=== PATIENT | female | born 1970 | race Caucasian/White ===

== ENCOUNTER 2017-01-01 12:19 | Emergency (ER) | payer BC ==
[~2017-01-01] VITALS: Ht 165.1 cm; Wt 100.0 kg
[2017-01-01] MEDS ORDERED: JENC0.35 PO (12:32)
[2017-01-01] MEDS ORDERED: GI COCKTAIL 50ML BTL(HYOSCYAMINE/MAALOX/LIDOCAINE VISCOUS)(1:3:1) PO ONE (13:30)
[2017-01-01 13:40] LABS: BASO % 0.4 % (0.0-1.0); EOS % 0.2 % (0.0-3.0); IMMATURE GRANULOCYTE % 0.5 % (0-0); LYMPH # 1.7 10^3/uL (1.5-4.5); LYMPH % 17.7 % (24.0-44.0); MEAN CORPUSCULAR HEMOGLOBIN 25.8 pg (27.0-33.0); MEAN CORPUSCULAR HGB CONC 31.6 g/dl (32.0-36.5); MEAN CORPUSCULAR VOLUME 81.8 fl (80.0-96.0); MONO # 0.6 10^3/uL (0.0-0.8); NEUTROPHILS % 75.2 % (36.0-66.0); PLATELET COUNT, AUTOMATED 438 10^3/uL (150-450); RED CELL DISTRIBUTION WIDTH 13.9 % (11.5-14.5); WHITE BLOOD COUNT 9.3 10^3/uL (4.0-10.0)
[2017-01-01 13:50] LABS: INR 1.03
--- NOTE | 2017-01-01 13:51 | REP ---
Clinical: Chest pain . Comparison: 03/07/2015 . Technique: PA and lateral. Findings: The mediastinum and cardiac silhouette are normal. The lung johnson are clear and without acute consolidation, effusion, or pneumothorax. The skeletal structures are intact and normal. Impression: 1. No acute cardiopulmonary process. Signed by Vaughn Burris MD 01/01/2017 01:42 P
[2017-01-01 13:54] LABS: ALBUMIN 3.9 GM/DL (3.2-5.2); ALBUMIN/GLOBULIN RATIO 1.08 (1.00-1.93); ALKALINE PHOSPHATASE 69 U/L (45-117); ALT/SGPT 18 U/L (12-78); ANION GAP 9 MEQ/L (8-16); AST/SGOT 13 U/L (7-37); BILIRUBIN,DIRECT 0.1 MG/DL (0.0-0.2); BILIRUBIN,TOTAL 0.3 MG/DL (0.2-1.0); BLOOD UREA NITROGEN 11 MG/DL (7-18); CALCIUM LEVEL 9.4 MG/DL (8.5-10.1); CARBON DIOXIDE LEVEL 22 MEQ/L (21-32); CHLORIDE LEVEL 106 MEQ/L (98-107); CREATININE FOR GFR 0.85 MG/DL (0.55-1.02); GLOMERULAR FILTRATION RATE > 60.0 (>58); GLUCOSE, FASTING 103 MG/DL (70-105); POTASSIUM SERUM 3.6 MEQ/L (3.5-5.1); SODIUM LEVEL 137 MEQ/L (136-145); TOTAL PROTEIN 7.5 GM/DL (6.4-8.2)
[2017-01-01] MEDS ORDERED: SUCRALFATE SUSP 1GM/10ML UD PO ONE (14:30)
--- NOTE | 2017-01-01 14:55 | REP ---
Clinical: Chest pain. Technique: Axial noncontrast images from the thoracic inlet to the upper abdomen with coronal and sagittal re-formations. Findings: The lung johnson are well-aerated, symmetric and essentially clear. Minimal scarring at the lingula appears chronic. No acute consolidation, significant nodule or mass lesion. No pleural effusion/reaction or pneumothorax. Tracheobronchial tree is patent. No adenopathy. Mediastinum demonstrates normal thoracic aorta, pulmonary vasculature and heart/pericardium. Surrounding musculoskeletal structures are intact. Limited upper abdomen demonstrates normal bilateral adrenal glands. Impression: Normal noncontrast chest CT. Signed by Vaughn Burris MD 01/01/2017 02:47 P
[2017-01-01] MEDS ORDERED: ISOVUE-370 76% 100ML VIAL (Q9967) As Ordered ONE (16:20)
--- NOTE | 2017-01-01 16:44 | REP ---
Clinical: Acute chest pain. Technique: Axial contrast enhanced images from the thoracic inlet to the upper abdomen using 100 ml Isovue 370 intravenous contrast material with coronal and sagittal re-formations. Findings: Satisfactory enhancement of the pulmonary vasculature is achieved and no filling defects are identified to suggest pulmonary embolus. Thoracic aorta is normal caliber without aneurysm or dissection. Heart and pericardium are normal. Bilateral lung johnson are well aerated and clear without acute pulmonary parenchymal consolidation or atelectasis. No nodule or mass lesion. No pleural effusion/reaction. No pneumothorax. No adenopathy. Impression: No evidence for pulmonary embolus. No acute pleuroparenchymal or mediastinal process. Signed by Vaughn Burris MD 01/01/2017 04:36 P
[2017-01-01] MEDS ORDERED: SUCR1SS PO (17:11)
[2017-01-01] MEDS ORDERED: ASPI81TA85 PO (17:12)
[2017-01-01] MEDS ORDERED: PEPC1TAB4 PO (17:12)
--- NOTE | 2017-01-01 18:12 | ECGEPIP ---
Stationary ECG Study [facility] - ED Test Date: 2017-01-01 Pat Name: ANAI LEONARD Department: Room: - Gender: F [employer]: valerie : 1970 Requested By: Saumya Delgadillo Order Number: [id number] Reading MD: Saumya Delgadillo Measurements Intervals [place] Rate: 103 P: 23 WI: 176 QRS: -2 QRSD: 95 T: -8 QT: 361 QTc: 474 Interpretive Statements SINUS TACHYCARDIA MINIMAL ST DEPRESSION ABNORMAL RHYTHM ECG INCREASED RATE 03/07/15 Electronically Signed On 01-01-2017 18:12:06 EST by Saumya Delgadillo
[2017-01-01 20:35] VITALS: BP 149/70
--- NOTE | 2017-01-02 07:52 | ECGEPIP ---
Stationary ECG Study [facility] - ED Test Date: 2017-01-01 Pat Name: ANAI LEONARD Department: Room: - Gender: F [employer]: valerie : 1970 Requested By: Saumya Delgadillo Order Number: [id number] Reading MD: Saumya Delgadillo Measurements Intervals [place] Rate: 102 P: 18 KS: 169 QRS: -6 QRSD: 95 T: 11 QT: 335 QTc: 436 Interpretive Statements SINUS TACHYCARDIA LOW QRS VOLTAGE IN PRECORDIAL LEADS MINIMAL VOLTAGE CRITERIA FOR LVH, CONSIDER NORMAL VARIANT NONSPECIFIC T-WAVE ABNORMALITY ABNORMAL RHYTHM ECG SIMILAR 01/01/17 12:43 Electronically Signed On 01-02-2017 7:52:22 EST by Saumya Delgadillo
== END 2017-01-01 20:56 | disposition home or self-care (01) ==
LOC: M ED 12:19
DX: R07.9 Chest pain, unspecified (principal); R00.0 Tachycardia, unspecified; R94.31 Abnormal electrocardiogram [ECG] [EKG]; Z82.49 Family history of ischemic heart disease and other diseases of the circulatory system; Z79.899 Other long term (current) drug therapy
CPT/HCPCS: 71020; 71250; 71275; 80048; 80076; 82550; 82553; 83880; 84443; 85025; 85610; 93005; 93041; 94760; 99285; Q9967

== ENCOUNTER 2017-01-09 21:50 | Emergency (ER) | payer BC ==
[~2017-01-09] VITALS: Ht 165.1 cm; Wt 96.4 kg
[~2017-01-09 21:50] MED LIST: ASPI81TA85 PO; JENC0.35 PO; PEPC1TAB4 PO; SUCR1SS PO
[2017-01-09] MEDS ORDERED: METOPROLOL SUCC *XL* 25MG TAB (TopROL *XL*) PO ONE (22:45)
[2017-01-09 22:46] VITALS: BP 175/85
[2017-01-09 22:53] LABS: MEAN CORPUSCULAR HEMOGLOBIN 26.1 pg (27.0-33.0); MEAN CORPUSCULAR HGB CONC 31.7 g/dl (32.0-36.5); MEAN CORPUSCULAR VOLUME 82.4 fl (80.0-96.0); PLATELET COUNT, AUTOMATED 421 10^3/uL (150-450); RED CELL DISTRIBUTION WIDTH 14.3 % (11.5-14.5)
[2017-01-09 23:10] LABS: ANION GAP 10 MEQ/L (8-16); BLOOD UREA NITROGEN 10 MG/DL (7-18); CALCIUM LEVEL 10.6 MG/DL (8.5-10.1); CARBON DIOXIDE LEVEL 24 MEQ/L (21-32); CHLORIDE LEVEL 104 MEQ/L (98-107); CREATININE FOR GFR 0.89 MG/DL (0.55-1.02); GLOMERULAR FILTRATION RATE > 60.0 (>58); GLUCOSE, FASTING 93 MG/DL (70-105); POTASSIUM SERUM 3.4 MEQ/L (3.5-5.1); SODIUM LEVEL 138 MEQ/L (136-145)
[2017-01-09] MEDS ORDERED: METO1TAB32 PO (23:18)
[2017-01-09 23:28] VITALS: BP 156/79
== END 2017-01-09 23:33 | disposition home or self-care (01) ==
LOC: M ED 21:50
DX: I10 Essential (primary) hypertension (principal); Z79.82 Long term (current) use of aspirin; Z79.899 Other long term (current) drug therapy

== ENCOUNTER → 2017-01-13 | Outpatient (CLI) | payer BC ==
[~2017-01-13] MED LIST changes: +METO1TAB32 PO
--- NOTE | 2017-01-14 07:56 | REP ---
PELVIC ULTRASOUND: CLINICAL: Pelvic pain with abnormal uterine bleeding. TECHNIQUE: Transabdominal pelvic ultrasound followed by transvaginal examination for better evaluation of the endometrium and adnexa with color Doppler evaluation of the ovaries. COMPARISON: 12/20/2015. FINDINGS: The bladder is under distended by measures approximately 6.7 x 4.4 x 6.8 cm. Heterogeneous retroverted, retroflexed uterus measures 9.2 x 4.5 x 5.2 cm. Endometrial complex measures 5.4 mm thickness and a 7 mm endometrial polyp is identified. The right ovary measures 3.6 x 3.5 x 3.0 cm and includes a 2.9 cm cyst with daughter cysts and demonstrates normal vascularity without torsion. The left ovary is not visualized likely due to overlying bowel gas. No pelvic free fluid or adnexal mass lesion noted. IMPRESSION: 1. Heterogeneous uterus with 7 mm endometrial polyp suggested. 2. Right ovary includes 2.9 cm cyst with daughter cyst likely physiologic and may be re-evaluated in 4-6 weeks to evaluate for resolution. 3. Left ovary not visualized. Signed by Vaughn Burris MD 01/17/2017 11:52 P
== END ==
LOC: M RAD 16:47
PROVIDERS: ATTEND Nurse Practitioner Family
DX: N83.291 Other ovarian cyst, right side (principal)

== ENCOUNTER → 2018-06-23 | Outpatient (REF) | payer BC ==
[~2018-06-23] MED LIST changes: +BENA25TA10 PO; +MELA5TAB20 PO; +OXYC1TAB23 PO; -PEPC1TAB4 PO; +PEPC1TAB5 PO
[2018-06-23 11:40] LABS: BASO # 0.1 10^3/uL (0.0-0.2); BASO % 0.7 % (0.0-1.0); EOS # 0.1 10^3/uL (0.0-0.50); EOS % 0.8 % (0.0-3.0); HEMATOCRIT 39.2 % (36.0-47.0); HEMOGLOBIN 12.5 g/dl (12.0-15.5); LYMPH # 1.9 10^3/uL (1.5-4.5); LYMPH % 19.1 % (24.0-44.0); MEAN CORPUSCULAR HEMOGLOBIN 29.1 pg (27.0-33.0); MEAN CORPUSCULAR HGB CONC 31.9 g/dl (32.0-36.5); MEAN CORPUSCULAR VOLUME 91.2 fl (80.0-96.0); MONO # 0.9 10^3/uL (0.0-0.8); MONO % 9.7 % (0.0-5.0); NEUTROPHILS # 6.7 10^3/uL (1.8-7.7); NEUTROPHILS % 69.2 % (36.0-66.0); PLATELET COUNT, AUTOMATED 311 10^3/uL (150-450); WHITE BLOOD COUNT 9.7 10^3/uL (4.0-10.0)
[2018-06-23 12:17] LABS: ALBUMIN 3.6 GM/DL (3.2-5.2); ALT/SGPT 20 U/L (12-78); BILIRUBIN,TOTAL 0.4 MG/DL (0.2-1.0); BLOOD UREA NITROGEN 16 MG/DL (7-18); CALCIUM LEVEL 9.7 MG/DL (8.5-10.1); CARBON DIOXIDE LEVEL 27 MEQ/L (21-32); CHLORIDE LEVEL 105 MEQ/L (98-107); CHOLESTEROL LEVEL 219 MG/DL (<200); CHOLESTEROL RISK RATIO 4.659 (<5); CREATININE FOR GFR 0.92 MG/DL (0.55-1.30); FREE T4 1.02 NG/DL (0.76-1.46); GLOMERULAR FILTRATION RATE > 60.0 (>58); GLUCOSE, FASTING 97 MG/DL (70-100); HDL CHOLESTEROL 47 MG/DL (>40); LDL CHOLESTEROL 140 MG/DL (<100); NON-HDL-C 172 MG/DL; POTASSIUM SERUM 4.3 MEQ/L (3.5-5.1); SODIUM LEVEL 138 MEQ/L (136-145); TOTAL PROTEIN 7.3 GM/DL (6.4-8.2); TRIGLYCERIDES LEVEL 162 MG/DL (<150)
[2018-06-23 12:20] LABS: TOTAL 25(OH) VITAMIN D 16.3 NG/ML (30.0-100.0)
== END ==
LOC: M SFHCLERA 09:20
PROVIDERS: ATTEND Nurse Practitioner Family
DX: R53.82 Chronic fatigue, unspecified (principal); Z13.220 Encounter for screening for lipoid disorders

== ENCOUNTER → 2018-11-08 | Outpatient (CLI) | payer BC ==
--- NOTE | 2018-11-08 17:26 | REP ---
HISTORY: Heel pain. No trauma. COMPARISON: No priors. FINDINGS: The joint spaces are symmetric and relatively well maintained. There is no evidence of acute fracture or destructive osseous lesion. There is a tiny minimal possible plantar calcaneal spur. IMPRESSION: Negative. There is a tiny minimal possible plantar calcaneal spur. Electronically Signed by Chay Herring DO 11/09/2018 11:29 A
== END ==
LOC: M LRY 14:25
PROVIDERS: ATTEND Nurse Practitioner Family
DX: M79.671 Pain in right foot (principal)

== ENCOUNTER → 2018-12-26 | Outpatient (REF) | payer BC | LOC: M SFHCLERA 17:06 | PROVIDERS: ATTEND Nurse Practitioner Family | DX: E55.9 Vitamin D deficiency, unspecified (principal) ==

== ENCOUNTER → 2020-04-01 | Outpatient (REF) | payer BC ==
[~2020-04-01] MED LIST changes: -ASPI81TA85 PO; +ASPI81TA86 PO
[2020-04-01 17:51] LABS: BASO # 0.1 10^3/uL (0.0-0.2); BASO % 0.9 % (0.0-1.0); EOS # 0.1 10^3/uL (0.0-0.5); EOS % 1.1 % (0.0-3.0); HEMATOCRIT 40.2 % (36.0-47.0); LYMPH # 2.8 10^3/uL (1.5-5.0); LYMPH % 32.3 % (24.0-44.0); MEAN CORPUSCULAR HEMOGLOBIN 28.9 pg (27.0-33.0); MEAN CORPUSCULAR HGB CONC 32.3 g/dl (32.0-36.5); MEAN CORPUSCULAR VOLUME 89.3 fl (80.0-96.0); MONO # 0.7 10^3/uL (0.0-0.8); MONO % 7.9 % (2.0-8.0); NEUTROPHILS # 4.9 10^3/uL (1.5-8.5); NEUTROPHILS % 57.3 % (36.0-66.0); PLATELET COUNT, AUTOMATED 350 10^3/uL (150-450); WHITE BLOOD COUNT 8.5 10^3/uL (4.0-10.0)
[2020-04-01 18:13] LABS: ALBUMIN 4.1 GM/DL (3.2-5.2); ALT/SGPT 58 U/L (12-78); BILIRUBIN,TOTAL 0.3 MG/DL (0.2-1.0); BLOOD UREA NITROGEN 14 MG/DL (7-18); CALCIUM LEVEL 10.4 MG/DL (8.5-10.1); CARBON DIOXIDE LEVEL 29 MEQ/L (21-32); CHLORIDE LEVEL 104 MEQ/L (98-107); CREATININE FOR GFR 0.81 MG/DL (0.55-1.30); GLOMERULAR FILTRATION RATE > 60.0 (>58); GLUCOSE, FASTING 91 MG/DL (70-100); POTASSIUM SERUM 4.2 MEQ/L (3.5-5.1); RHEUMATOID FACTOR QUANT < 10.0 IU/ML (<15.0); SODIUM LEVEL 138 MEQ/L (136-145); TOTAL PROTEIN 7.3 GM/DL (6.4-8.2)
[2020-04-01 19:07] LABS: ERYTHROCYTE SEDIMENTATION RATE 11 mm/hr (0-20)
[2020-04-04 00:08] LABS: ANA (HEP2) Negative (.); CYCLIC CITRULLINATED PEPTIDE 5 units (0-19)
== END ==
LOC: M SFHCLERA 14:55
PROVIDERS: ATTEND Nurse Practitioner Family
DX: L40.9 Psoriasis, unspecified (principal); M25.561 Pain in right knee

== ENCOUNTER → 2020-04-02 | Outpatient (CLI) | payer BC ==
--- NOTE | 2020-04-02 10:37 | REPMRS ---
Patient History The patient states she has not had a clinical breast exam in over a year. No known family history of cancer. Took progesterone for 2 months. Digital Woman Screen Mammo: April 02, 2020 - Exam #: [id number] Bilateral CC and MLO view(s) were taken. Technologist: Hortencia Clark, Technologist Prior study comparison: December 20, 2015, bilateral digital mammo screening bilat, performed at [facility]. FINDINGS: There are scattered fibroglandular densities. The Volpara volumetric breast density category is:B. There has been no change in the appearance of the mammogram from the prior studies. There is a mild amount of scattered fibroglandular density which is fairly symmetric. There is no interval development of dominant mass, architectural distortion, or grouped microcalcification suggestive of malignancy. 3-D tomosynthesis shows no additional findings. Assessment: BI-RADS/ACR category 1 mammogram. Negative Mammogram. Recommendation Routine screening mammogram of both breasts in 1 year (for women over age 40). [facility] Lifetime Breast Cancer Risk is estimated at 8.4 %. This mammogram was interpreted with the aid of an FDA-approved computer-aided dectection system. Electronically Signed By: Kin Pantoja MD 04/02/20 1037
== END ==
LOC: M WHC 07:42
PROVIDERS: ATTEND Nurse Practitioner Family
DX: Z12.31 Encounter for screening mammogram for malignant neoplasm of breast (principal)

== ENCOUNTER → 2020-05-23 | Outpatient (CLI) | payer BC ==
--- NOTE | 2020-05-24 06:40 | REPPI ---
INDICATION: M75.80 ROTATOR CUFF DENTINITIS COMPARISON: None. TECHNIQUE: Internal rotation, external rotation, and Y view. FINDINGS: Cortical irregularity at the distal acromion. Subacromial space is normal. No periarticular calcifications or loose bodies are identified. The glenohumeral joint appears intact and normal. IMPRESSION: Mild degenerative changes at the acromioclavicular joint. <Electronically signed by Vaughn Burris > 05/24/20 0637
== END ==
LOC: M PLAIMG 10:49
PROVIDERS: ATTEND Internal Medicine
DX: M75.81 Other shoulder lesions, right shoulder (principal)

== ENCOUNTER → 2020-05-23 | Outpatient (REF) | payer BC ==
[2020-05-23 15:02] LABS: CALCIUM LEVEL 10.4 MG/DL (8.5-10.1); FREE T4 1.04 NG/DL (0.76-1.46); MAGNESIUM LEVEL 2.2 MG/DL (1.8-2.4); PHOSPHORUS LEVEL 2.9 MG/DL (2.5-4.9); THYROID STIMULATING HORMONE 2.72 uIU/ML (0.358-3.740)
[2020-05-23 16:31] LABS: PTH INTACT 65.2 PG/ML (18.5-88.0); TOTAL 25(OH) VITAMIN D 49.4 NG/ML (30.0-100.0)
== END ==
LOC: M SFHCRHEU 10:11
PROVIDERS: ATTEND Internal Medicine
DX: E83.52 Hypercalcemia (principal); M79.10 Myalgia, unspecified site; R53.82 Chronic fatigue, unspecified

== ENCOUNTER 2020-12-30 04:52 | Emergency (ER) | payer BC ==
[~2020-12-30] VITALS: Ht 167.6 cm; Wt 97.6 kg
--- OUTSIDE RECORDS SUMMARY | 2020-12-30 04:59 | CCD ---
Author Author [facility] [employer] [facility] [facility] Organization [facility] Address Unknown Phone Unavailable Care Team Providers Care Education Reporter Name Role Phone Osvaldo Prietonzie Unavailable PROBLEMS Type Condition ICD9-CM Code [id number] Code Onset Dates Condition S tatus W/U Status Risk SNOMED Code Notes Problem Gastroesophageal reflux disease, esophagitis pre sence not specified K21.9 Active confirmed 595691354 Problem Essential hypertension I10 Active confirmed 07454888 Problem GERD without esophagitis K21.9 Active confirmed 584640327 Problem Osteoarthritis of knee, unsp ecified laterality, unspecified osteoarthritis type M17.10 Active confirmed 584408301 Problem Psoriasis L40.9 Active confirmed 4229352 Problem Acute right-sided low back pain with right-sided sciatica M54.41 Active confirmed 583119828 Problem Insomnia, unspecified type G47.00 Active confirmed 405313521 Problem Chronic fatigue R53.82 Active confirmed 8422 9001 Problem Vitamin D deficiency E55.9 Active confirmed 11354181 Problem Serum calcium elevated E83.52 Active confirmed 70015633 ALLERGIES No Known Allergies ENCOUNTERS from 1970 to 2020-12-20 Encounter Location Date Provider Diagnosis [address] [phone] [place] [address] 11 Dec, 2020 Clarisa Prieto IMMUNIZATIONS Vaccine Route Administration Date Status Influenza Pharmacy Given Unknown Dec 26, 2018 Refused TDAP 0.5mL (Boostrix) IM Intramuscular Dec 23, 2017 Administe red SOCIAL HISTORY Tobacco Use: Social History Observation Description Date Details (start date - stop date) Never Smoker Sex Assigned At : Social History Observation Description Sex Assigned At Unknown Education: Question Answer Notes Level of Education: College Audit Question Answer Notes Total Score: 0 Interpretation: Alcohol Education Language: Question Answer Notes Languages spoken: Bangladeshi Hindu: Question Answer Notes Hindu 33 None Sexual Hx: Question Answer Notes Had sex in the last 12 months (vaginal, oral, or anal)? Yes Have you ever had an STD? No Prevention Strategies discussed: Other with Men only Use protection? No Drug and Alcohol Question Answer Notes Total Score: 0 Interpretation: No problems reported Alcohol Screening: Question Answer Notes Did you have a drink containing alcohol in the past year? Ye s Points 1 Interpretation Negative How often did you have six or more drinks on one occas ion in the past year? Never (0 points) How many drinks did you have on a typica l day when you were drinking in the past year? 1 or 2 (0 points) How often did you have a drink containing alcohol in t he past year? Monthly or less (1 point) BMI Care Goal Follow-Up Question Answer Notes Above Normal BMI Follow-Up Dietary management educatio n, guidance, and counseling, Dietary needs education, Exercise promotion: strength training Tobacco Use: Question Answer Notes Are you a: never smoker never smoker REASON FOR REFERRAL No Information VITAL SIGNS No information MEDICATIONS Medication SIG (Take, Route, Frequency, Duration) Notes Start Da te End Date Status Vitamin C 500 MG 1 tablet Orally Once a day for 30 day(s) Active Metoprolol Succinate ER 50 MG 1 tablet Orally Once a day for 90 days Active Magnesium 400 MG 1 capsule with a meal Orally at night OTC Active Gabapentin 300 MG 1 capsule Orally TID for 14 days Dec, Active Nabumetone(Relafen) 500 mg 500 mg one tablet orally every 12 hours for 90 days Please contact the patient, when the prescription is ready, thank you. Active Zanaflex 2 MG 1 cap Orally Qhs for 30 days Dec, Active Multivitamin Women - 1 tab Orally Once a day Active Voltaren 1 % apply 4 g of 1% gel to affec jessica area Transdermal four times daily as needed for 30 days Active Apple Cider Vinegar _ 1 cap Orally bid OTC Active Tylenol Extra Strength 500 MG 2 tablet as needed Orally every night Active Vitamin D 125 MCG (5000 UT) 1 capsule Orally Once a day Active hydrOXYzine HCl 50 MG 1 tablet at bedtime Orally at bedtime for 90 day(s) Jan, Active [place] 3 1000 MG 1 capsule Orally every other day Nov, 2 021 Active PROCEDURES No Information RESULTS No Results REASON FOR VISIT sciatica pain MEDICAL (GENERAL) HISTORY Type Description Date Medical History Hypertension Medical History GERD Medical History Psoriasis Medical History Left/right knee pain Medical History Hiatal Hernia Medical History Dysfunctional Gall bladder Surgical History Carpal tunnel release left hand 2003 Surgical History Tubal ligation 1998 Surgical History Partial hysterectomy 05/10/17 Hospitalization History Surgery related Hospitalization History Child x 3 1991, 1996, 1998 Goals Section No Information Health Concerns No Information MEDICAL EQUIPMENT No Information MENTAL STATUS No Information FUNCTIONAL STATUS No Information ASSESSMENTS No Information PLAN OF TREATMENT Medication Medication Name Sig Start Date Stop Date Zanaflex 2 MG 1 cap Orally Qhs for 30 days Dec, Gabapentin 300 MG 1 capsule Orally TID for 14 days Dec, Next Appt Details Provider Name:Lennie Sprague, 2021-05-26 10:45:00 AM, [address] [place] [address], , [place], [place], [facility], Insurance Providers Payer Name Payer Address Payer Phone Insured Name Patient Relati onship to Insured Coverage Start Date Coverage End Date [facility] [phone] [facility] [address] [facility] [id number] Cliff Carpenter
--- OUTSIDE RECORDS SUMMARY | 2020-12-30 04:59 | CCD ---
Author Author [facility] Organization [facility] Address Unknown Phone Unavailable Care Team Providers Care Child Development Director Name Role Phone Lennie Sprague PROBLEMS Type Condition ICD9-CM Code [id number] Code Onset Dates Condition S tatus W/U Status Risk SNOMED Code Notes Problem Psoriasis L40.9 Active confirmed 7893823 Problem Gastroesophageal reflux disease, esophagitis pre sence not specified K21.9 Active confirmed 194547544 Problem Essential hypertension I10 Active confirmed 81983020 Problem Serum calcium elevated E83.52 Active confirmed 25308636 Problem Osteoarthritis of knee, unsp ecified laterality, unspecified osteoarthritis type M17.10 Active confirmed 723330448 Problem GERD without esophagitis K21.9 Active confirmed 759050054 Problem Insomnia, unspecified type G47.00 Active confirmed 259448077 Problem Chronic fatigue R53.82 Active confirmed 8422 9001 Problem Vitamin D deficiency E55.9 Active confirmed 34311928 ALLERGIES Allergen (clinical drug ingredient) Drug/Non Drug Allergy do cumented on EMR Reaction Allergy Type Onset Date Status Hayfever Unknown Non Drug Allergy Active ENCOUNTERS from 1970 to 2020-11-23 Encounter Location Date Provider Diagnosis [facility] [phone] [place] [address] 15 Nov, 2020 Lennie Sprague IMMUNIZATIONS Vaccine Route Administration Date Status Influenza [...] Education Language: Question Answer Notes Languages spoken: Indian Confucianism: Question Answer Notes Confucianism 33 None Sexual Hx: Question Answer Notes [...] Notes Start Da te End Date Status Nabumetone(Relafen) 500 mg 500 mg one tablet orally every 12 hours for 30 days Active PROCEDURES No Information RESULTS No Results REASON FOR VISIT Appointment Status MEDICAL (GENERAL) HISTORY Type Description Date Medical [...] Medication Name Sig Start Date Stop Date Nabumetone(Relafen) 500 mg 500 mg one tablet orally every 12 hours for 30 days Next Appt Details Provider Name:Lennie Sprague, 2020-11-25 10:45:00 AM, [address] [place] [address], [place], [place], [facility], Insurance Providers Payer Name Payer Address Payer Phone Insured Name Patient Relati onship to Insured Coverage Start Date Coverage End Date [facility] [phone] [facility] [address] ROSITA Saleh [facility] [address] Cliff Carpenter
--- OUTSIDE RECORDS SUMMARY | 2020-12-30 04:59 | CCD ---
Author Author [facility] Organization [facility] Address Unknown Phone Unavailable Care Team Providers Care Hand Spinner Name Role Phone Lisbeth Sawant Unavailable PROBLEMS Type Condition ICD9-CM Code [id number] Code Onset Dates Condition S tatus W/U Status Risk SNOMED Code Notes Problem Gastroesophageal reflux disease, esophagitis pre sence not specified K21.9 Active confirmed 328270468 Problem Essential hypertension I10 Active confirmed 56106247 Problem GERD without esophagitis K21.9 Active confirmed 515218386 Problem Osteoarthritis of knee, unsp ecified laterality, unspecified osteoarthritis type M17.10 Active confirmed 709999156 Problem Psoriasis L40.9 Active confirmed 6582368 Problem Acute right-sided low back pain with right-sided sciatica M54.41 Active confirmed 980769171 Problem Insomnia, unspecified type G47.00 Active confirmed 705806298 Problem Chronic fatigue R53.82 Active confirmed 8422 9001 Problem Vitamin D deficiency E55.9 Active confirmed 28996954 Problem Serum calcium elevated E83.52 Active confirmed 29818975 ALLERGIES No Known Allergies ENCOUNTERS from 1970 to 2020-12-20 Encounter Location Date Provider Diagnosis [address] [phone] [place] [address] 09 Dec, 2020 Lisbeth Sawnat Acute right-sided low back p ain with right-sided sciatica M54.41 IMMUNIZATIONS Vaccine Route Administration Date Status Influenza [...] Education Language: Question Answer Notes Languages spoken: Cook Islander Gnosticism: Question Answer Notes Gnosticism 33 None Sexual Hx: Question Answer Notes [...] REASON FOR REFERRAL No Information VITAL SIGNS Weight 237.8 lbs Dec, Weight-kg 107.87 kg Dec, Height 65.5 in Dec, BMI 38.97 kg/m2 Dec, Heart Rate 132 /min Dec, Respiratory Rate 22 /min Dec, Temperature 97.5 degrees Fahrenheit Dec, Oximetry 100 Dec, Blood pressure systolic 150 mm Hg Dec, Blood pressure diastolic 100 mm Hg Dec, MEDICATIONS Medication SIG (Take, Route, Frequency, Duration) [...] at bedtime for 90 day(s) Jan, Active [place] 3 1000 MG 1 capsule Orally every other day Nov, 2 021 Active PROCEDURES from 1970 to 2020-12-20 Procedure Date Ordered Result Body Site Medication: Depo-Medrol 80mg IM (Methylprednisolone Acetate) 02-19-08 N/A RESULTS No Results REASON FOR VISIT Door D/ Hip pain MEDICAL (GENERAL) HISTORY Type Description Date [...] No Information FUNCTIONAL STATUS No Information ASSESSMENTS Encounter Date Diagnosis Assessment Notes Treatment Notes Treatm ent Clinical Notes Dec, Acute right-sided low back p ain with right-sided sciatica (ICD-10 - M54.41) Pt's pain had improved by the end of the visit; she was no longer crying and was able to ambulate. Recommended f/u with PCP Dec, Other Total time kellie ng for the patient on the day of the encounter was 20 min PLAN OF TREATMENT Medication Medication Name Sig Start Date Stop Date Zanaflex 2 MG 1 cap Orally Qhs for 30 days Dec, Gabapentin 300 MG 1 capsule Orally TID for 14 days Dec, Treatment Notes Assessment Notes Clinical Notes Acute right-sided low back pain with right-sided sciatica Pt's pain had improved by the end of the visit; she was no longer crying and was able to ambulate. Recommended f/u with PCP Next Appt Details f/u 5-7 days with PCP or other Leray pro vider; when out of quarantine Reason: Provider Name:Lennie Sprague, 2021-05-26 10:45:00 AM, [address] [place] [address], , [place], [place], [facility], Insurance Providers Payer Name Payer Address Payer Phone Insured Name Patient Relati onship to Insured Coverage Start Date Coverage End Date [facility] [phone] [facility] [address] [facility] [id number] Cliff Carpenter
--- OUTSIDE RECORDS SUMMARY | 2020-12-30 04:59 | CCD ---
Author Author [facility] Organization [facility] Address Unknown Phone Unavailable Care Team Providers Care Rn Float Name Role Phone Holli Long Unavailable PROBLEMS Type Condition ICD9-CM Code [id number] Code Onset Dates Condition S tatus W/U Status Risk SNOMED Code Notes Problem Gastroesophageal reflux disease, esophagitis pre sence not specified K21.9 Active confirmed 356553512 Problem Essential hypertension I10 Active confirmed 00538761 Problem GERD without esophagitis K21.9 Active confirmed 534864907 Problem Osteoarthritis of knee, unsp ecified laterality, unspecified osteoarthritis type M17.10 Active confirmed 567494615 Problem Psoriasis L40.9 Active confirmed 4729452 Problem Acute right-sided low back pain with right-sided sciatica M54.41 Active confirmed 357736963 Problem Insomnia, unspecified type G47.00 Active confirmed 328054144 Problem Chronic fatigue R53.82 Active confirmed 8422 9001 Problem Vitamin D deficiency E55.9 Active confirmed 00348642 Problem Serum calcium elevated E83.52 Active confirmed 09291927 ALLERGIES No Known Allergies ENCOUNTERS from 1970 to 2020-12-27 Encounter Location Date Provider Diagnosis [address] [phone] [place] [address] Dec, Hollielmer Long IMMUNIZATIONS Vaccine Route Administration Date Status Influenza [...] Education Language: Question Answer Notes Languages spoken: Urdu Mandaen: Question Answer Notes Mandaen 33 None Sexual Hx: Question Answer Notes [...] at bedtime for 90 day(s) Jan, Active [place] 3 1000 MG 1 capsule Orally every other day 18 Oct, 2 021 Active PROCEDURES No Information RESULTS No Results REASON FOR VISIT Sciatica MEDICAL (GENERAL) HISTORY Type Description Date Medical History Hypertension Medical History GERD Medical History Psoriasis Medical History Left/right knee pain Medical History Hiatal Hernia Medical History Dysfunctional Gall bladder Surgical History Carpal tunnel release left hand 2004 Surgical History Tubal ligation 1998 Surgical History [...] Details Provider Name:Lennie Sprague, 2021-05-26 10:45:00 AM, [address] [place] [address], , [place], [place], [facility], Insurance Providers Payer Name Payer Address Payer Phone Insured Name Patient Relati onship to Insured Coverage Start Date Coverage End Date [facility] [phone] [facility] [address] [facility] [id number] Cliff Carpenter
--- OUTSIDE RECORDS SUMMARY | 2020-12-30 04:59 | CCD ---
Author Author [facility] Organization [facility] Address Unknown Phone Unavailable Care Team Providers Care Painter Sign Maintenance Name Role Phone Lennie Sprague PROBLEMS Type Condition ICD9-CM Code [id number] Code Onset Dates Condition S tatus W/U Status Risk SNOMED Code Notes Problem Psoriasis L40.9 Active confirmed 8202989 Problem Gastroesophageal reflux disease, esophagitis pre sence not specified K21.9 Active confirmed 032396697 Problem Essential hypertension I10 Active confirmed 57153545 Problem Serum calcium elevated E83.52 Active confirmed 05044126 Problem Osteoarthritis of knee, unsp ecified laterality, unspecified osteoarthritis type M17.10 Active confirmed 361649280 Problem GERD without esophagitis K21.9 Active confirmed 099159893 Problem Insomnia, unspecified type G47.00 Active confirmed 561749025 Problem Chronic fatigue R53.82 Active confirmed 8422 9001 Problem Vitamin D deficiency E55.9 Active confirmed 90863698 ALLERGIES Allergen (clinical drug ingredient) Drug/Non Drug Allergy do cumented on EMR Reaction Allergy Type Onset Date Status Hayfever Unknown Non Drug Allergy Active ENCOUNTERS from 1970 to 2020-12-05 Encounter Location Date Provider Diagnosis [facility] Rheumatology [address] [place] [address] [place] [id number] 18 Nov, 2020 Lennie Sprague Rotator cuff tendinitis, uns pecified laterality M75.80 ; Osteoarthritis of knee, unspecified laterality, unspecified osteoarthritis type M17.10 ; Trochanteric bursitis, unspecified laterality M70.60 ; Plantar fasciitis M72.2 ; Chronic fatigue R53.82 ; Psoriasis L40.9 ; Myalgia M79.10 and residential (current) use of non-steroidal anti-inflammatories (NSAID) Z79.1 IMMUNIZATIONS Vaccine Route Administration Date Status Influenza [...] Education Language: Question Answer Notes Languages spoken: Divehi Congregation: Question Answer Notes Congregation 33 None Sexual Hx: Question Answer Notes [...] No Information VITAL SIGNS Weight 237.8 lbs Nov, Height 65.5 in Nov, BMI 38.97 kg/m2 Nov, Heart Rate 89 /min Nov, Respiratory Rate 18 /min Nov, Temperature 98.7 degrees Fahrenheit Nov, Oximetry 98 Nov, Blood pressure systolic 130 mm Hg Nov, Blood pressure diastolic 84 mm Hg Nov, MEDICATIONS Medication SIG (Take, Route, Frequency, Duration) Notes Start Da te End Date Status Voltaren 1 % apply 4 g of 1% gel to affec jessica area Transdermal four times daily as needed for 30 days Active Magnesium 400 MG 1 capsule with a meal Orally at night OTC Active Apple Cider Vinegar _ 1 cap Orally bid OTC Active Multivitamin Women - 1 tab Orally Once a day Active Metoprolol Succinate ER 50 MG 1 tablet Orally Once a day for 90 days Active Tylenol Extra Strength 500 MG 2 tablet as needed Orally every night Active Nabumetone(Relafen) 500 mg 500 mg one tablet orally every 12 hours for 90 days Please contact the patient, when the prescription is ready, thank you. Active Vitamin C 500 MG 1 tablet Orally Once a day for 30 day(s) Active Vitamin D 125 MCG (5000 UT) 1 capsule Orally Once a day Active [place] 3 1000 MG 1 capsule Orally every other day Nov, Active hydrOXYzine HCl 50 MG 1 tablet at bedtime Orally at bedtime for 90 day(s) Jan, Active PROCEDURES No Information RESULTS No Results REASON FOR VISIT c/o significant pain in left heel. Right shoulder rarely bothers pt MEDICAL (GENERAL) HISTORY Type Description Date Medical [...] Notes Treatment Notes Treatm ent Clinical Notes Nov, Rotator cuff tendinitis, unspecified lat erality (ICD-10 - M75.80) Right shoulder pain, swelling, and weakness consistent w/ rotator cuff tendinitis, with significant improvement in the symptomatology, after the cortictosteroid injection on 09/12/2020. Previously reviewed the x-rays of the shoulder consistent with "mild degenerative changes at the acromioclavicular joint." The patient has improved with the home exercise program. Will defer to PT for strengthening, conditioning, and increased range of motion of joints in a supervised environment. Continue Nabumetone 500 mg twice daily for improvement in the symptomatology. Nov, Osteoarthritis of knee, unsp ecified laterality, unspecified osteoarthritis type (ICD-10 - M17.10) Knee pain is consistent with osteoarthritis, slowly improving. Strongly encouraged a consistent exercise program and weight management. Will defer physical therapy for strengthening, conditioning, and increased range of motion of joints in a supervised environment. Continue voltaren and Tylenol 1000 mg daily as needed for analgesia. Nov, Trochanteric bursitis, unspecified laterality (I CD-10 - M70.60) Clinical presentation consistent w/ trochanteric bursitis of the bilateral hips with significant improvement in symptomatology. Will defer physical therapy, at this time. Encouraged the performance trochanteric bursitis exercises on weekly basis. Nov, Plantar fasciitis (ICD-10 - M72.2) Information and exercises provided for the plantar fasciitis; expect improvement in the foot symptomatology with the exercises. Will defer the podiatry consultation, based on the patient preference and the barriers that she faces w/ cost. Nov, Chronic fatigue (ICD-10 - R53.82) Recommended the optimization of lifestyle, will consider a home sleep study for continued fatigue symptomatology. Nov, Psoriasis (ICD-10 - L40.9) History of psoriasis; no evidence of psoriatic arthritis, based on the overall clinical presentation. Nov, Myalgia (ICD-10 - M79.10) The underlying etiology of the myalgias are unknown, at this time. TSH, vitamin B12, magnesium, phosphorous, CK were within normal limits and iron on the lower end of normal range. The patient was also encouraged to increase foods with iron (information provided). 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 PLAN OF TREATMENT Medication Medication Name Sig Start Date Stop Date Nabumetone(Relafen) 500 mg 500 mg one tablet orally every 12 hours for 90 days Voltaren 1 % apply 4 g of 1% gel to affec jessica area Transdermal four times daily as needed for 30 days Treatment Notes Assessment Notes Clinical Notes Rotator cuff tendinitis, unspecified laterality Right shoulder pain, swelling, and weakness consistent w/ rotator cuff tendinitis, with significant improvement in the symptomatology, after the cortictosteroid injection on 09/12/2020. Previously reviewed the x-rays of the shoulder consistent with "mild degenerative changes at the acromioclavicular joint." The patient has improved with the home exercise program. Will defer to PT for strengthening, conditioning, and increased range of motion of joints in a supervised environment. Continue Nabumetone 500 mg twice daily for improvement in the symptomatology. Osteoarthritis of knee, unspecified laterality, unspec ified osteoarthritis type Knee pain is consistent with osteoarthri tis, slowly improving. Strongly encouraged a consistent exercise program and weight management. Will defer physical therapy for strengthening, conditioning, and increased range of motion of joints in a supervised environment. Continue voltaren and Tylenol 1000 mg daily as needed for analgesia. Trochanteric bursitis, unspecified laterality Clinical presentation consistent w/ trochanteric bursitis of the bilateral hips with significant improvement in symptomatology. Will defer physical therapy, at this time. Encouraged the performance trochanteric bursitis exercises on weekly basis. Plantar fasciitis Information and exer cises provided for the plantar fasciitis; expect improvement in the foot symptomatology with the exercises. Will defer the podiatry consultation, based on the patient preference and the barriers that she faces w/ cost. Chronic fatigue Recommended the opti mization of lifestyle, will consider a home sleep study for continued fatigue symptomatology. Psoriasis History of psoriasis ; no evidence of psoriatic arthritis, based on the overall clinical presentation. Myalgia The underlying etiol ogy of the myalgias are unknown, at this time. TSH, vitamin B12, magnesium, phosphorous, CK were within normal limits and iron on the lower end of normal range. The patient was also encouraged to increase foods with iron (information provided). 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 Next Appt Details Provider Name:Lennie Sprague, 2021-05-26 10:45:00 AM, [address] [place] [address], , [place], [address], Insurance Providers Payer Name Payer Address Payer Phone Insured Name Patient Relati onship to Insured Coverage Start Date Coverage End Date [facility] [phone] [place] [address] [address] [facility] [id number] Cliff Carpenter
--- OUTSIDE RECORDS SUMMARY | 2020-12-30 04:59 | CCD ---
Author Author [facility] Organization [facility] [employer] [facility] Address Unknown Phone Unavailable Care Team Providers Care Rice Farmworker Name Role Phone Clarisa Prieto Unavailable PROBLEMS ALLERGIES No Known Allergies ENCOUNTERS from 1970 to 2020-12-24 IMMUNIZATIONS SOCIAL HISTORY REASON FOR REFERRAL No Information VITAL SIGNS MEDICATIONS PROCEDURES No Information RESULTS No Results REASON FOR VISIT MEDICAL (GENERAL) HISTORY Goals Section Health Concerns MEDICAL EQUIPMENT No Information MENTAL STATUS FUNCTIONAL STATUS ASSESSMENTS No Information PLAN OF TREATMENT Insurance Providers
--- OUTSIDE RECORDS SUMMARY | 2020-12-30 05:00 | CCD ---
Author Author [facility] Organization [facility] Address Unknown Phone Unavailable Care Team Providers Care Skip Miner Name Role Phone José Luis Cleveland MD Unavailable Unavailable José Luis Cleveland MD Unavailable Unavailable José Luis Cleveland MD Unavailable Unavailable José Luis Cleveland MD Unavailable Unavailable José Luis Cleveland MD Unavailable Unavailable José Luis Cleveland MD Unavailable Unavailable José Luis Cleveland MD Unavailable Unavailable José Luis Cleveland MD Unavailable Unavailable José Luis Cleveland MD Unavailable Unavailable José Luis Cleveland MD Unavailable Unavailable José Luis Cleveland MD Unavailable Unavailable José Luis Cleveland MD Unavailable Unavailable José Luis Cleveland MD Unavailable Unavailable José Luis Cleveland MD Unavailable Unavailable José Luis Cleveland MD Unavailable Unavailable José Luis Cleveland MD Unavailable Unavailable José Luis Cleveland MD Unavailable Unavailable José Luis Cleveland MD Unavailable Unavailable José Luis Cleveland MD Unavailable Unavailable José Luis Cleveland MD Unavailable Unavailable José Luis Cleveland MD Unavailable Unavailable José Luis Cleveland MD Unavailable Unavailable José Luis Cleveland MD Unavailable Unavailable José Luis Cleveland MD Unavailable Unavailable José Luis Cleveland MD Unavailable Unavailable Re-disclosure Warning The records that you are about to access may contain information from federally-assisted alcohol or drug abuse programs. If such information is present, then the following federally mandated warning applies: This information has been disclosed to you from records protected by federal confidentiality rules (42 CFR part 2). The federal rules prohibit you from making any further disclosure of this information unless further disclosure is expressly permitted by the written consent of the person to whom it pertains or as otherwise permitted by 42 CFR part 2. A general authorization for the release of medical or other information is NOT sufficient for this purpose. The Federal rules restrict any use of the information to criminally investigate or prosecute any alcohol or drug abuse patient.The records that you are about to access may contain highly sensitive health information, the redisclosure of which is protected by Article 27-F of the [facility] Public Health law. If you continue you may have access to information: Regarding HIV / AIDS; Provided by facilities licensed or operated by the [facility] Office of Mental Health; or Provided by the [facility] Office for People With Developmental Disabilities. If such information is present, then the following [facility] mandated warning applies: This information has been disclosed to you from confidential records which are protected by state law. State law prohibits you from making any further disclosure of this information without the specific written consent of the person to whom it pertains, or as otherwise permitted by law. Any unauthorized further disclosure in violation of state law may result in a fine or usp sentence or both. A general authorization for the release of medical or other information is NOT sufficient authorization for further disc losure. Family History Family Member Name Family Member Gender Family Member Status Date o f Status Description Data Source(s) Unknown Unknown Problem MEDENT ([facility], ) Encounters Encounter Providers Location Date Indications Data Source(s ) Unknown [address] [facility] [address] 12/27/2020 12:00:00 AM EST eCW1 ([facility]) Unknown [address] [facility] [place] [address] 12/24/2020 12:00:00 AM EST eCW1 ([facility]) Outpatient Attender: Moraima Cleveland MD 1 02/23/2020 11:23:33 AM EST - 12/23/2020 11:47:17 AM EST DocuTap ([facility]) Unknown [address] [facility] [address] 12/19/2020 12:00:00 AM EST eCW1 ([facility]) Outpatient [address] [facility] [address] 12/17/2020 12:00:00 AM EST eCW1 ([facility]) Outpatient [address] [facility] [address] 11/25/2020 12:00:00 AM EDT eCW1 ([facility]) Unknown [address] [facility] [address] 11/22/2020 12:00:00 AM EDT eCW1 ([facility]) Unknown [address] [facility] [address] 09/15/2020 12:00:00 AM EDT eCW1 ([facility]) ([facility] IN[facility]) INJECTIONS [address] [place] [address] 09/12/2020 12:00:00 AM EDT eCW1 ([facility]) Unknown [address] [facility] [address] 09/09/2020 12:00:00 AM EDT eCW1 ([facility]) Unknown [address] [facility] [address] 09/02/2020 12:00:00 AM EDT eCW1 ([facility]) Outpatient [address] [facility] [address] 08/23/2020 12:00:00 AM EDT eCW1 ([facility]) Unknown [address] [facility] [place] [address] 08/23/2020 12:00:00 AM EDT eCW1 ([facility]) Unknown [address] [facility] [address] 08/05/2020 12:00:00 AM EDT eCW1 ([facility]) Unknown [address] [facility] [address] 07/24/2020 12:00:00 AM EDT eCW1 ([facility]) Outpatient [address] [facility] [address] 05/23/2020 12:00:00 AM EDT eCW1 ([facility]) Unknown [address] [facility] [address] 04/08/2020 12:00:00 AM EST eCW1 ([facility]) Unknown [address] [facility] [address] 01/12/2020 12:00:00 AM EST eCW1 ([facility]) Unknown [address] [facility] [address] 01/10/2020 12:00:00 AM EST eCW1 ([facility]) Medications Medication Brand Name Start Date Product Form Dose Route Admi nistrative Instructions Pharmacy Instructions Status Indications Reaction Description Data Source(s) gabapentin 300 MG Oral Capsule Gabapentin 300 MG Gabapentin 300 MG 12/17/2020 12:00:00 AM EST 1.0 {capsule} active G abapentin 300 MG eCW1 ([facility]) tizanidine 2 MG Oral Capsule [Zanaflex] Zanaflex 2 MG Zanafl ex 2 MG 12/17/2020 12:00:00 AM EST active Zanaflex 2 MG eCW1 ([facility]) 300 mg 12/17/2020 12:00:00 AM EST capsule 42 TAKE ONE CAPSULE BY MOUTH THREE TIMES A DAY TAKE ONE CAPSULE BY MOUTH THREE TIMES A DAY SOLD: 12/17/2020 [facility] gabapentin 300 MG Oral Capsule Gabapentin 300 MG Gabapentin 300 MG 12/17/2020 12:00:00 AM EST 1.0 {capsule} active G abapentin 300 MG eCW1 ([facility]) gabapentin 300 MG Oral Capsule Gabapentin 300 MG Gabapentin 300 MG 12/17/2020 12:00:00 AM EST 1.0 {capsule} active eCW1 ([facility]) tizanidine 2 MG Oral Capsule [Zanaflex] Zanaflex 2 MG Zanafl ex 2 MG 12/17/2020 12:00:00 AM EST active e CW1 ([facility]) tizanidine 2 MG Oral Capsule [Zanaflex] Zanaflex 2 MG Zanafl ex 2 MG 12/17/2020 12:00:00 AM EST active Zanaflex 2 MG eCW1 ([facility]) tizanidine 2 MG Oral Capsule [Zanaflex] Zanaflex 2 MG Zanafl ex 2 MG 12/17/2020 12:00:00 AM EST active Zanaflex 2 MG eCW1 ([facility]) gabapentin 300 MG Oral Capsule Gabapentin 300 MG Gabapentin 300 MG 12/17/2020 12:00:00 AM EST 1.0 {capsule} active G abapentin 300 MG eCW1 ([facility]) 2 mg 12/17/2020 12:00:00 AM EST capsule 30 TAKE ONE CAPSULE BY MOUTH AT BEDTIME TAKE ONE CAPSULE BY MOUTH AT BEDTIME SOLD: 12/17/2020 [facility] Gary 3 1000 MG Gary 3 1000 MG 11/25/2020 12:00:00 AM EDT 1.0 { capsule} active Gary 3 1000 MG eCW1 ([facility]) Gary 3 1000 MG Gary 3 1000 MG 11/25/2020 12:00:00 AM EDT 1.0 { capsule} active Gary 3 1000 MG eCW1 ([facility]) Gary 3 1000 MG Gary 3 1000 MG 11/25/2020 12:00:00 AM EDT 1.0 { capsule} active Gary 3 1000 MG eCW1 ([facility]) Gary 3 1000 MG Gary 3 1000 MG 11/25/2020 12:00:00 AM EDT 1.0 { capsule} active eCW1 ([facility]) Gary 3 1000 MG Gary 3 1000 MG 11/25/2020 12:00:00 AM EDT 1.0 { capsule} active Gary 3 1000 MG eCW1 ([facility]) Nabumetone(Relafen) 500 mg 500 mg UNK 08/23/2020 12:00:00 AM EDT active Nabumetone(Relafen) 500 mg 500 m g eCW1 ([facility]) Nabumetone(Relafen) 500 mg 500 mg UNK 08/23/2020 12:00:00 AM EDT active eCW1 ([facility]) Nabumetone(Relafen) 500 mg 500 mg UNK 08/23/2020 12:00:00 AM EDT active Nabumetone(Relafen) 500 mg 500 m g eCW1 ([facility]) Voltaren 1 % UNK 05/23/2020 12:00:00 AM EDT activ e Voltaren 1 % eCW1 ([facility]) Diclofenac Sodium 0.01 MG/MG Topical Gel [Voltaren] Voltaren 1 % Voltaren 1 % 05/23/2020 12:00:00 AM EDT active Voltaren 1 % eCW1 ([facility]) Diclofenac Sodium 0.01 MG/MG Topical Gel [Voltaren] Voltaren 1 % Voltaren 1 % 05/23/2020 12:00:00 AM EDT active Voltaren 1 % eCW1 ([facility]) Hydroxyzine Hydrochloride 50 MG Oral Tablet hydrOXYzin e HCl 50 MG hydrOXYzine HCl 50 MG 01/15/2020 12:00:00 AM EST 1.0 {tablet_at_bedtime} active hydrOXYzine HCl 50 MG eCW1 ([facility]) Hydroxyzine Hydrochloride 50 MG Oral Tablet hydrOXYzin e HCl 50 MG hydrOXYzine HCl 50 MG 01/15/2020 12:00:00 AM EST 1.0 {tablet_at_bedtime} active hydrOXYzine HCl 50 MG eCW1 ([facility]) Hydroxyzine Hydrochloride 50 MG Oral Tablet HydrOXYzin e HCl 50 MG HydrOXYzine HCl 50 MG 01/15/2020 12:00:00 AM EST 1.0 {tablet_at_bedtime} active HydrOXYzine HCl 50 MG eCW1 ([facility]) Hydroxyzine Hydrochloride 50 MG Oral Tablet hydrOXYzin e HCl 50 MG hydrOXYzine HCl 50 MG 01/15/2020 12:00:00 AM EST 1.0 {tablet_at_bedtime} active hydrOXYzine HCl 50 MG eCW1 ([facility]) Hydroxyzine Hydrochloride 50 MG Oral Tablet HydrOXYzin e HCl 50 MG HydrOXYzine HCl 50 MG 01/15/2020 12:00:00 AM EST 1.0 {tablet_at_bedtime} active HydrOXYzine HCl 50 MG eCW1 ([facility]) Hydroxyzine Hydrochloride 50 MG Oral Tablet hydrOXYzin e HCl 50 MG hydrOXYzine HCl 50 MG 01/15/2020 12:00:00 AM EST 1.0 {tablet_at_bedtime} active hydrOXYzine HCl 50 MG eCW1 ([facility]) Hydroxyzine Hydrochloride 50 MG Oral Tablet hydrOXYzin e HCl 50 MG hydrOXYzine HCl 50 MG 01/15/2020 12:00:00 AM EST 1.0 {tablet_at_bedtime} active eCW1 ([facility]) Hydroxyzine Hydrochloride 50 MG Oral Tablet HydrOXYzin e HCl 50 MG HydrOXYzine HCl 50 MG 01/15/2020 12:00:00 AM EST 1.0 {tablet_at_bedtime} active HydrOXYzine HCl 50 MG eCW1 ([facility]) Hydroxyzine Hydrochloride 50 MG Oral Tablet hydrOXYzin e HCl 50 MG hydrOXYzine HCl 50 MG 01/15/2020 12:00:00 AM EST 1.0 {tablet_at_bedtime} active hydrOXYzine HCl 50 MG eCW1 ([facility]) Hydroxyzine Hydrochloride 50 MG Oral Tablet hydrOXYzin e HCl 50 MG hydrOXYzine HCl 50 MG 01/15/2020 12:00:00 AM EST 1.0 {tablet_at_bedtime} active hydrOXYzine HCl 50 MG eCW1 ([facility]) Hydroxyzine Hydrochloride 50 MG Oral Tablet hydrOXYzin e HCl 50 MG hydrOXYzine HCl 50 MG 01/15/2020 12:00:00 AM EST 1.0 {tablet_at_bedtime} active hydrOXYzine HCl 50 MG eCW1 ([facility]) Hydroxyzine Hydrochloride 50 MG Oral Tablet hydrOXYzin e HCl 50 MG hydrOXYzine HCl 50 MG 01/15/2020 12:00:00 AM EST 1.0 {tablet_at_bedtime} active eCW1 ([facility]) Hydroxyzine Hydrochloride 50 MG Oral Tablet hydrOXYzin e HCl 50 MG hydrOXYzine HCl 50 MG 01/15/2020 12:00:00 AM EST 1.0 {tablet_at_bedtime} active hydrOXYzine HCl 50 MG eCW1 ([facility]) Insurance Providers Payer name Policy type / Coverage type Policy ID Covered alliance party ID Covered alliance party's relationship to [place] Policy [place] Plan Information [place] 302/307 [id number] SP [id number] [place] / [id number] [place] 020 [id number] [employer] Blue Cross and Blue Shield - [place] Blue Cross/B lue Shield [id number] Self [id number] SELF PAY ONLY SP [place] PPO 302/307 [id number] SP [id number] [employer] BCBS B [id number] [facility] [id number] ANSI-Commercial [id number] ANSI-Commercial [id number] ANSI-Commercial [id number] [place] 020/520 [id number] ANSI-Commercial [id number] ANSI-Commercial [id number] [facility] BCBS B [id number] S W [id number] [facility] Health Maintenance Organization (HMO) [id number] Self [id number] [place] 020/520 [id number] SP [id number] [facility] Health Maintenance Organization ([facility] [id number] Self [id number] [facility] Health Maintenance Organization ([facility] [id number] Self [id number] ANSI-Commercial [id number] [place] P[place] 302/307 [id number] [place] 020/ [id number] SP [id number] [place] 020/520 [id number] Problems, Conditions, and Diagnoses Code Display Name Description Problem Type Effective Dates Data Source(s) M54.41 [id number] Acute right-sided low back pain with right-sided sciatica Problem 12/17/2020 12:00:00 AM EST eCW1 ([facility]) E83.52 [id number] Serum calcium elevated Problem 05/23/2020 12 :00:00 AM EDT eCW1 ([facility]) M17.10 [id number] Osteoarthritis of kn ee, unspecified laterality, unspecified osteoarthritis type Problem 05/23/2020 12:00:00 AM EDT eCW1 ([facility]) Surgeries/Procedures Procedure Description Date Indications Data Source(s) Injection, methylprednisolone acetate, 80 mg 1 12:00:00 AM EST eCW1 ([facility]) Med: Rheum Kenalog 40mg/1mL IA Triamcinolone 1 12:00:00 AM EDT eCW1 ([facility]) Results ID Date Data Source FREE T4 & TSH PANEL 05/23/2020 12:00:00 AM EDT eCW1 ([facility]) Name Value Range Interpretation Code Description Data Kimberley rce(s) Supporting Document(s) 1.04 0.76-1.46 FREE T4 eCW1 ([facility]) 2.720 0.358-3.740 THYROID STIMULATING HORM ONE eCW1 ([facility]) ID Date Data Source VITAMIN B12 LEVEL 05/23/2020 12:00:00 AM EDT eCW1 ([facility]) Name Value Range Interpretation Code Description Data Kimberley rce(s) Supporting Document(s) [id number] VITAMIN B12 LEVEL eCW1 ([facility]) ID Date Data Source MAGNESIUM LEVEL 05/23/2020 12:00:00 AM EDT eCW1 ([facility]) Name Value Range Interpretation Code Description Data Kimberley rce(s) Supporting Document(s) 2.2 1.8-2.4 MAGNESIUM LEVEL eCW1 ([facility]) ID Date Data Source PTH INTACT 05/23/2020 12:00:00 AM EDT eCW1 ([facility]) Name Value Range Interpretation Code Description Data Kimberley rce(s) Supporting Document(s) 65.2 18.5-88.0 PTH INTACT eCW1 ([facility]) ID Date Data Source VITAMIN D 25-HYDROXY 05/23/2020 12:00:00 AM EDT eCW1 ([facility]) Name Value Range Interpretation Code Description Data Kimberley rce(s) Supporting Document(s) 49.4 30.0-100.0 TOTAL 25(OH) VITAMIN D eC W1 ([facility]) ID Date Data Source PHOSPHOROUS LEVEL 05/23/2020 12:00:00 AM EDT eCW1 ([facility]) Name Value Range Interpretation Code Description Data Kimberley rce(s) Supporting Document(s) 2.9 2.5-4.9 PHOSPHORUS LEVEL eCW1 ([facility]) ID Date Data Source IRON (FE) 05/23/2020 12:00:00 AM EDT eCW1 ([facility]) Name Value Range Interpretation Code Description Data Kimberley rce(s) Supporting Document(s) [id number] IRON (FE) eCW1 ([facility]) ID Date Data Source CPK CREATINE PHOSPHOKINASE 05/23/2020 12:00:00 AM EDT eCW1 ( [facility]) Name Value Range Interpretation Code Description Data Kimberley rce(s) Supporting Document(s) [id number] [id number] CPK CREATINE PHOSPHOKINASE eCW 1 ([facility]) ID Date Data Source CALCIUM LEVEL 05/23/2020 12:00:00 AM EDT eCW1 ([facility]) Name Value Range Interpretation Code Description Data Kimberley rce(s) Supporting Document(s) 10.4 8.5-10.1 CALCIUM LEVEL eCW1 ([facility]) Procedure Social History Code Duration Value Status Description Data Source(s ) Smoking 12/17/2020 12:00:00 AM EST Never Smoker completed Never S moker eCW1 ([facility]) Smoking 12/17/2020 12:00:00 AM EST Never Smoker completed Never S moker eCW1 ([facility]) Smoking 12/17/2020 12:00:00 AM EST Never Smoker completed Never S moker eCW1 ([facility]) Smoking 12/17/2020 12:00:00 AM EST Never Smoker completed Never S moker eCW1 ([facility]) Smoking 11/25/2020 12:00:00 AM EDT Never Smoker completed Never S moker eCW1 ([facility]) Smoking 09/13/2020 12:00:00 AM EDT Never Smoker completed Never S moker eCW1 ([facility]) Smoking 09/13/2020 12:00:00 AM EDT Never Smoker completed Never S moker eCW1 ([facility]) Smoking 09/13/2020 12:00:00 AM EDT Never Smoker completed Never S moker eCW1 ([facility]) Smoking 09/13/2020 12:00:00 AM EDT Never Smoker completed Never S moker eCW1 ([facility]) Smoking 08/23/2020 12:00:00 AM EDT Never Smoker completed Never S moker eCW1 ([facility]) Smoking 08/23/2020 12:00:00 AM EDT Never Smoker completed Never S moker eCW1 ([facility]) Smoking 08/23/2020 12:00:00 AM EDT Never Smoker completed Never S moker eCW1 ([facility]) Smoking 05/23/2020 12:00:00 AM EDT Never Smoker completed Never S moker eCW1 ([facility]) Smoking 05/23/2020 12:00:00 AM EDT Never Smoker completed Never S moker eCW1 ([facility]) Smoking 05/23/2020 12:00:00 AM EDT Never Smoker completed Never S moker eCW1 ([facility]) Smoking 04/01/2020 12:00:00 AM EST Never Smoker completed Never S moker eCW1 ([facility]) Vital Signs ID Date Data Source UNK Name Value Range Interpretation Code Description Data Source(s) Diastolic blood pressure 100 mm[Hg] 100 mm[Hg] eCW1 ([facility]) Body weight 237.8 [lb_av] 237.8 [lb_av] eCW1 ([facility]) Body weight 107.87 kg 107.87 kg eCW1 ([facility]) Body height 65.5 [in_i] 65.5 [in_i] eCW1 ([facility]) Body mass index (BMI) [Ratio] 38.97 kg/m2 38.97 kg/m2 eCW1 ([facility]) Heart rate 132 /min 132 /min eCW1 ([facility]) Respiratory rate 22 /min 22 /min eCW1 ([facility]) Body temperature 97.5 [degF] 97.5 [degF] eCW1 ( [facility]) Systolic blood pressure 150 mm[Hg] 150 mm[Hg] e CW1 ([facility]) Body weight 237.8 [lb_av] 237.8 [lb_av] eCW1 ([facility]) Body height 65.5 [in_i] 65.5 [in_i] eCW1 ([facility]) Body mass index (BMI) [Ratio] 38.97 kg/m2 38.97 kg/m2 eCW1 ([facility]) Heart rate 89 /min 89 /min eCW1 ([facility]) Respiratory rate 18 /min 18 /min eCW1 ([facility]) Body temperature 98.7 [degF] 98.7 [degF] eCW1 ( [facility]) Systolic blood pressure 130 mm[Hg] 130 mm[Hg] e CW1 ([facility]) Diastolic blood pressure 84 mm[Hg] 84 mm[Hg] eCW1 ([facility]) Body weight 242.2 [lb_av] 242.2 [lb_av] eCW1 ([facility]) Body weight 109.9 kg 109.9 kg eCW1 ([facility]) Body height 65.5 [in_i] 65.5 [in_i] eCW1 ([facility]) Body mass index (BMI) [Ratio] 39.69 kg/m2 39.69 kg/m2 eCW1 ([facility]) Heart rate 88 /min 88 /min eCW1 ([facility]) Respiratory rate 20 /min 20 /min eCW1 ([facility]) Body temperature 99.1 [degF] 99.1 [degF] eCW1 ( [facility]) Systolic blood pressure 138 mm[Hg] 138 mm[Hg] e CW1 ([facility]) Diastolic blood pressure 82 mm[Hg] 82 mm[Hg] eCW1 ([facility]) Body weight 240.6 [lb_av] 240.6 [lb_av] eCW1 ([facility]) Body weight 109.1 kg 109.1 kg eCW1 ([facility]) Body mass index (BMI) [Ratio] 39.42 kg/m2 39.42 kg/m2 eCW1 ([facility]) Heart rate 86 /min 86 /min eCW1 ([facility]) Respiratory rate 18 /min 18 /min eCW1 ([facility]) Body temperature 98.6 [degF] 98.6 [degF] eCW1 ( [facility]) Body height 65.5 [in_i] 65.5 [in_i] eCW1 ([facility]) Patient Treatment Plan of Care Planned Activity Planned Date Details Description Data Source (s) tizanidine 2 MG Oral Capsule [Zanaflex] 12/17/2020 12:00:00 AM EST eCW1 ([facility]) gabapentin 300 MG Oral Capsule 12/17/2020 12:00:00 AM EST eCW1 ([facility]) tizanidine 2 MG Oral Capsule [Zanaflex] 12/17/2020 12:00:00 AM EST eCW1 ([facility]) gabapentin 300 MG Oral Capsule 12/17/2020 12:00:00 AM EST eCW1 ([facility]) tizanidine 2 MG Oral Capsule [Zanaflex] 12/17/2020 12:00:00 AM EST eCW1 ([facility]) gabapentin 300 MG Oral Capsule 12/17/2020 12:00:00 AM EST eCW1 ([facility]) tizanidine 2 MG Oral Capsule [Zanaflex] 12/17/2020 12:00:00 AM EST eCW1 ([facility]) gabapentin 300 MG Oral Capsule 12/17/2020 12:00:00 AM EST eCW1 ([facility]) Nabumetone(Relafen) 500 mg 500 mg 08/23/2020 12:00:00 AM EDT eCW1 ([facility]) Nabumetone(Relafen) 500 mg 500 mg 08/23/2020 12:00:00 AM EDT eCW1 ([facility]) Nabumetone(Relafen) 500 mg 500 mg 08/23/2020 12:00:00 AM EDT eCW1 ([facility]) Diclofenac Sodium 0.01 MG/MG Topical Gel [Voltaren] 05/24/19 12:00:00 AM EDT eCW1 ([facility]) Voltaren 1 % 05/23/2020 12:00:00 AM EDT e CW1 ([facility]) Diclofenac Sodium 0.01 MG/MG Topical Gel [Voltaren] 05/24/19 12:00:00 AM EDT eCW1 ([facility]) Hydroxyzine Hydrochloride 50 MG Oral Tablet 01/15/2020 12:00:00 AM EST eCW1 ([facility])
[2020-12-30] MEDS ORDERED: APPL300T4 PO (05:04)
[2020-12-30] MEDS ORDERED: VITA500C24 PO (05:04)
[2020-12-30] MEDS ORDERED: NABU-71 PO (05:04)
[2020-12-30] MEDS ORDERED: HYDR50TA70 PO (05:04)
[2020-12-30] MEDS ORDERED: ACET-683 PO (05:04)
[2020-12-30] MEDS ORDERED: MAGN200T PO (05:04)
[2020-12-30] MEDS ORDERED: NOXI1TAB PO (05:04)
[2020-12-30] MEDS ORDERED: VITMTA PO (05:04)
[2020-12-30] MEDS ORDERED: SUPECAP7 PO (05:04)
[2020-12-30] MEDS ORDERED: NS 1,000 ML IV ONE (06:40)
[2020-12-30] MEDS ORDERED: tiZANidine 4 MG TAB PO ONE (06:40)
--- OUTSIDE RECORDS SUMMARY | 2020-12-30 06:43 | CCD ---
Author Author [facility] Organization [facility] Address Unknown Phone Unavailable Care Team Providers Care Hand Hardener Name Role Phone José Luis Cleveland MD [...] Luis Cleveland MD Unavailable Unavailable José Luis Cleevland MD Unavailable Unavailable José Luis Cleveland MD [...] is protected by Article 27-F of the [facility] Public Health law. If you continue you may have access to information: Regarding HIV / AIDS; Provided by facilities licensed or operated by the [facility] Office of Mental Health; or Provided by the [facility] Office for People With Developmental Disabilities. If such information is present, then the following [facility] mandated warning applies: This information has [...] law may result in a fine or nursing home sentence or both. A general authorization for the release of medical or other information is NOT sufficient authorization for further disc losure. Family History Family Member Name Family Member Gender Family Member Status Date o f Status Description Data Source(s) Unknown Unknown Problem MEDENT ([facility], ) Encounters Encounter Providers Location Date Indications Data Source(s ) Unknown [address] [facility] [address] 12/27/2020 12:00:00 AM EST eCW1 ([facility]) Unknown [address] [facility] [place] [address] 12/24/2020 12:00:00 AM EST eCW1 ([facility]) Outpatient Attender: Moraima Cleveland MD 1 02/23/2020 11:23:33 AM EST - 12/23/2020 11:47:17 AM EST DocuTap ([facility]) [place] [address] [facility] [address] 12/19/2020 12:00:00 AM EST eCW1 ([facility]) Outpatient [address] [facility] [address] 12/17/2020 12:00:00 AM EST eCW1 ([facility]) Outpatient [address] [facility] [address] 11/25/2020 12:00:00 AM EDT eCW1 ([facility]) Unknown [address] [facility] [address] 11/22/2020 12:00:00 AM EDT eCW1 ([facility]) Unknown [address] [facility] [address] 09/15/2020 12:00:00 AM EDT eCW1 ([facility]) ([facility] INJ) INJECTIONS [address] [place] [address] 09/12/2020 12:00:00 AM EDT eCW1 ([facility]) Unknown [address] [facility] [address] 09/09/2020 12:00:00 AM EDT eCW1 ([facility]) Unknown [address] [facility] [address] 09/02/2020 12:00:00 AM EDT eCW1 ([facility]) Outpatient [address] [facility] [address] 08/23/2020 12:00:00 AM EDT eCW1 ([facility]) Unknown [address] [facility] [place] [address] 08/23/2020 12:00:00 AM EDT eCW1 ([facility]) Unknown [address] [facility] [address] 08/05/2020 12:00:00 AM EDT eCW1 ([facility]) Unknown [address] [facility] [address] 07/24/2020 12:00:00 AM EDT eCW1 ([facility]) Outpatient [address] [facility] [address] 05/23/2020 12:00:00 AM EDT eCW1 ([facility]) Unknown [address] [facility] [address] 04/08/2020 12:00:00 AM EST eCW1 ([facility]) Unknown [address] [facility] [address] 01/12/2020 12:00:00 AM EST eCW1 ([facility]) Unknown [address] [facility] [address] 01/10/2020 12:00:00 AM EST eCW1 ([facility]) Medications Medication Brand Name Start Date Product Form Dose Route Admi nistrative Instructions Pharmacy Instructions Status Indications Reaction Description Data Source(s) gabapentin 300 MG Oral Capsule Gabapentin 300 MG Gabapentin 300 MG 12/17/2020 12:00:00 AM EST 1.0 {capsule} active G abapentin 300 MG eCW1 ([facility]) tizanidine 2 MG Oral Capsule [Zanaflex] Zanaflex 2 MG Zanafl ex 2 MG 12/17/2020 12:00:00 AM EST active Zanaflex 2 MG eCW1 ([facility]) 300 mg 12/17/2020 12:00:00 AM EST capsule 42 TAKE ONE CAPSULE BY MOUTH THREE TIMES A DAY TAKE ONE CAPSULE BY MOUTH THREE TIMES A DAY SOLD: 12/17/2020 [facility] gabapentin 300 MG Oral Capsule Gabapentin 300 MG Gabapentin 300 MG 12/17/2020 12:00:00 AM EST 1.0 {capsule} active G abapentin 300 MG eCW1 ([facility]) gabapentin 300 MG Oral Capsule Gabapentin 300 MG Gabapentin 300 MG 12/17/2020 12:00:00 AM EST 1.0 {capsule} active eCW1 ([facility]) tizanidine 2 MG Oral Capsule [Zanaflex] Zanaflex 2 MG Zanafl ex 2 MG 12/17/2020 12:00:00 AM EST active e CW1 ([facility]) tizanidine 2 MG Oral Capsule [Zanaflex] Zanaflex 2 MG Zanafl ex 2 MG 12/17/2020 12:00:00 AM EST active Zanaflex 2 MG eCW1 ([facility]) tizanidine 2 MG Oral Capsule [Zanaflex] Zanaflex 2 MG Zanafl ex 2 MG 12/17/2020 12:00:00 AM EST active Zanaflex 2 MG eCW1 ([facility]) gabapentin 300 MG Oral Capsule Gabapentin 300 MG Gabapentin 300 MG 12/17/2020 12:00:00 AM EST 1.0 {capsule} active G abapentin 300 MG eCW1 ([facility]) 2 mg 12/17/2020 12:00:00 AM EST capsule 30 TAKE ONE CAPSULE BY MOUTH AT BEDTIME TAKE ONE CAPSULE BY MOUTH AT BEDTIME SOLD: 12/17/2020 [facility] [place] 3 1000 MG [place] 3 1000 MG 11/25/2020 12:00:00 AM EDT 1.0 { capsule} active [place] 3 1000 MG eCW1 ([facility]) [place] 3 1000 MG [place] 3 1000 MG 11/25/2020 12:00:00 AM EDT 1.0 { capsule} active [place] 3 1000 MG eCW1 ([facility]) [place] 3 1000 MG [place] 3 1000 MG 11/25/2020 12:00:00 AM EDT 1.0 { capsule} active [place] 3 1000 MG eCW1 ([facility]) [place] 3 1000 MG [place] 3 1000 MG 11/25/2020 12:00:00 AM EDT 1.0 { capsule} active eCW1 ([facility]) [place] 3 1000 MG [place] 3 1000 MG 11/25/2020 12:00:00 AM EDT 1.0 { capsule} active [place] 3 1000 MG eCW1 ([facility]) Nabumetone(Relafen) 500 mg 500 mg UNK 08/23/2020 12:00:00 AM EDT active Nabumetone(Relafen) 500 mg 500 m g eCW1 ([facility]) Nabumetone(Relafen) 500 mg 500 mg UNK 08/23/2020 12:00:00 AM EDT active eCW1 ([facility]) Nabumetone(Relafen) 500 mg 500 mg UNK 08/23/2020 12:00:00 AM EDT active Nabumetone(Relafen) 500 mg 500 m g eCW1 ([facility]) Voltaren 1 % UNK 05/23/2020 12:00:00 AM EDT activ e Voltaren 1 % eCW1 ([facility]) Diclofenac Sodium 0.01 MG/MG Topical Gel [Voltaren] Voltaren 1 % Voltaren 1 % 05/23/2020 12:00:00 AM EDT active Voltaren 1 % eCW1 ([facility]) Diclofenac Sodium 0.01 MG/MG Topical Gel [Voltaren] Voltaren 1 % Voltaren 1 % 05/23/2020 12:00:00 AM EDT active Voltaren 1 % eCW1 ([facility]) Hydroxyzine Hydrochloride 50 MG Oral Tablet hydrOXYzin e HCl 50 MG hydrOXYzine HCl 50 MG 01/15/2020 12:00:00 AM EST 1.0 {tablet_at_bedtime} active hydrOXYzine HCl 50 MG eCW1 ([facility]) Hydroxyzine Hydrochloride 50 MG Oral Tablet hydrOXYzin e HCl 50 MG hydrOXYzine HCl 50 MG 01/15/2020 12:00:00 AM EST 1.0 {tablet_at_bedtime} active hydrOXYzine HCl 50 MG eCW1 ([facility]) Hydroxyzine Hydrochloride 50 MG Oral Tablet HydrOXYzin e HCl 50 MG HydrOXYzine HCl 50 MG 01/15/2020 12:00:00 AM EST 1.0 {tablet_at_bedtime} active HydrOXYzine HCl 50 MG eCW1 ([facility]) Hydroxyzine Hydrochloride 50 MG Oral Tablet hydrOXYzin e HCl 50 MG hydrOXYzine HCl 50 MG 01/15/2020 12:00:00 AM EST 1.0 {tablet_at_bedtime} active hydrOXYzine HCl 50 MG eCW1 ([facility]) Hydroxyzine Hydrochloride 50 MG Oral Tablet HydrOXYzin e HCl 50 MG HydrOXYzine HCl 50 MG 01/15/2020 12:00:00 AM EST 1.0 {tablet_at_bedtime} active HydrOXYzine HCl 50 MG eCW1 ([facility]) Hydroxyzine Hydrochloride 50 MG Oral Tablet hydrOXYzin e HCl 50 MG hydrOXYzine HCl 50 MG 01/15/2020 12:00:00 AM EST 1.0 {tablet_at_bedtime} active hydrOXYzine HCl 50 MG eCW1 ([facility]) Hydroxyzine Hydrochloride 50 MG Oral Tablet hydrOXYzin e HCl 50 MG hydrOXYzine HCl 50 MG 01/15/2020 12:00:00 AM EST 1.0 {tablet_at_bedtime} active eCW1 ([facility]) Hydroxyzine Hydrochloride 50 MG Oral Tablet HydrOXYzin e HCl 50 MG HydrOXYzine HCl 50 MG 01/15/2020 12:00:00 AM EST 1.0 {tablet_at_bedtime} active HydrOXYzine HCl 50 MG eCW1 ([facility]) Hydroxyzine Hydrochloride 50 MG Oral Tablet hydrOXYzin e HCl 50 MG hydrOXYzine HCl 50 MG 01/15/2020 12:00:00 AM EST 1.0 {tablet_at_bedtime} active hydrOXYzine HCl 50 MG eCW1 ([facility]) Hydroxyzine Hydrochloride 50 MG Oral Tablet hydrOXYzin e HCl 50 MG hydrOXYzine HCl 50 MG 01/15/2020 12:00:00 AM EST 1.0 {tablet_at_bedtime} active hydrOXYzine HCl 50 MG eCW1 ([facility]) Hydroxyzine Hydrochloride 50 MG Oral Tablet hydrOXYzin e HCl 50 MG hydrOXYzine HCl 50 MG 01/15/2020 12:00:00 AM EST 1.0 {tablet_at_bedtime} active hydrOXYzine HCl 50 MG eCW1 ([facility]) Hydroxyzine Hydrochloride 50 MG Oral Tablet hydrOXYzin e HCl 50 MG hydrOXYzine HCl 50 MG 01/15/2020 12:00:00 AM EST 1.0 {tablet_at_bedtime} active eCW1 ([facility]) Hydroxyzine Hydrochloride 50 MG Oral Tablet hydrOXYzin e HCl 50 MG hydrOXYzine HCl 50 MG 01/15/2020 12:00:00 AM EST 1.0 {tablet_at_bedtime} active hydrOXYzine HCl 50 MG eCW1 ([facility]) Insurance Providers Payer name Policy type / Coverage type Policy ID Covered democrat ID Covered democrat's relationship to [place] Policy [place] Plan Information [place] 302/307 [id number] SP [id number] [place] / [id number] [place] 020 [id number] [employer] Blue Cross and Blue Shield - [place] Blue Cross/B lue Shield [id number] Self [id number] SELF PAY ONLY SP [place] PPO 302/307 [id number] SP [id number] EXCELLUS BCBS B [id number] [facility] [id number] ANSI-Commercial [id number] ANSI-Commercial [id number] ANSI-Commercial [id number] [place] 020/520 [id number] ANSI-Commercial [id number] ANSI-Commercial [id number] [facility] BCBS B [id number] S W [id number] [facility] [employer] [facility] (HMO) [id number] Self [id number] [place] 020/520 [id number] SP [id number] [facility] Maintenance [facility] ([facility]) [id number] Self [id number] [facility] [employer] [facility] ([facility]) [id number] Self [id number] ANSI-Commercial [id number] [place] PPO 302/307 [id number] [place] 020/ [id number] SP [id number] [place] 020/520 [id number] Problems, Conditions, and Diagnoses Code Display Name Description Problem Type Effective Dates Data Source(s) M54.41 [id number] Acute right-sided low back pain with right-sided sciatica Problem 12/17/2020 12:00:00 AM EST eCW1 ([facility]) E83.52 [id number] Serum calcium elevated Problem 05/23/2020 12 :00:00 AM EDT eCW1 ([facility]) M17.10 [id number] Osteoarthritis of kn ee, unspecified laterality, unspecified osteoarthritis type Problem 05/23/2020 12:00:00 AM EDT eCW1 ([facility]) Surgeries/Procedures Procedure Description Date Indications Data Source(s) Injection, methylprednisolone acetate, 80 mg 1 12:00:00 AM EST eCW1 ([facility]) Med: Rheum Kenalog 40mg/1mL IA Triamcinolone 1 12:00:00 AM EDT eCW1 ([facility]) Results ID Date Data Source FREE T4 & TSH PANEL 05/23/2020 12:00:00 AM EDT eCW1 ([facility]) Name Value Range Interpretation Code Description Data Kimberley rce(s) Supporting Document(s) 1.04 0.76-1.46 FREE T4 eCW1 ([facility]) 2.720 0.358-3.740 THYROID STIMULATING HORM ONE eCW1 ([facility]) ID Date Data Source VITAMIN B12 LEVEL 05/23/2020 12:00:00 AM EDT eCW1 ([facility]) Name Value Range Interpretation Code Description Data Kimberley rce(s) Supporting Document(s) [id number] [id number] VITAMIN B12 LEVEL eCW1 ([facility]) ID Date Data Source MAGNESIUM LEVEL 05/23/2020 12:00:00 AM EDT eCW1 ([facility]) Name Value Range Interpretation Code Description Data Kimberley rce(s) Supporting Document(s) 2.2 1.8-2.4 MAGNESIUM LEVEL eCW1 ([facility]) ID Date Data Source PTH INTACT 05/23/2020 12:00:00 AM EDT eCW1 ([facility]) Name Value Range Interpretation Code Description Data Kimberley rce(s) Supporting Document(s) 65.2 18.5-88.0 PTH INTACT eCW1 ([facility]) ID Date Data Source VITAMIN D 25-HYDROXY 05/23/2020 12:00:00 AM EDT eCW1 ([facility]) Name Value Range Interpretation Code Description Data Kimberley rce(s) Supporting Document(s) 49.4 30.0-100.0 TOTAL 25(OH) VITAMIN D eC W1 ([facility]) ID Date Data Source PHOSPHOROUS LEVEL 05/23/2020 12:00:00 AM EDT eCW1 ([facility]) Name Value Range Interpretation Code Description Data Kimberley rce(s) Supporting Document(s) 2.9 2.5-4.9 PHOSPHORUS LEVEL eCW1 ([facility]) ID Date Data Source IRON (FE) 05/23/2020 12:00:00 AM EDT eCW1 ([facility]) Name Value Range Interpretation Code Description Data Kimberley rce(s) Supporting Document(s) [id number] 50-170 IRON (FE) eCW1 ([facility]) ID Date Data Source CPK CREATINE PHOSPHOKINASE 05/23/2020 12:00:00 AM EDT eCW1 ( [facility]) Name Value Range Interpretation Code Description Data Kimberley rce(s) Supporting Document(s) [id number] 26-192 CPK CREATINE PHOSPHOKINASE eCW 1 ([facility]) ID Date Data Source CALCIUM LEVEL 05/23/2020 12:00:00 AM EDT eCW1 ([facility]) Name Value Range Interpretation Code Description Data Kimberley rce(s) Supporting Document(s) 10.4 8.5-10.1 CALCIUM LEVEL eCW1 ([facility]) Procedure Social History Code Duration Value Status Description Data Source(s ) Smoking 12/17/2020 12:00:00 AM EST Never Smoker completed Never S moker eCW1 ([facility]) Smoking 12/17/2020 12:00:00 AM EST Never Smoker completed Never S moker eCW1 ([facility]) Smoking 12/17/2020 12:00:00 AM EST Never Smoker completed Never S moker eCW1 ([facility]) Smoking 12/17/2020 12:00:00 AM EST Never Smoker completed Never S moker eCW1 ([facility]) Smoking 11/25/2020 12:00:00 AM EDT Never Smoker completed Never S moker eCW1 ([facility]) Smoking 09/13/2020 12:00:00 AM EDT Never Smoker completed Never S moker eCW1 ([facility]) Smoking 09/13/2020 12:00:00 AM EDT Never Smoker completed Never S moker eCW1 ([facility]) Smoking 09/13/2020 12:00:00 AM EDT Never Smoker completed Never S moker eCW1 ([facility]) Smoking 09/13/2020 12:00:00 AM EDT Never Smoker completed Never S moker eCW1 ([facility]) Smoking 08/23/2020 12:00:00 AM EDT Never Smoker completed Never S moker eCW1 ([facility]) Smoking 08/23/2020 12:00:00 AM EDT Never Smoker completed Never S moker eCW1 ([facility]) Smoking 08/23/2020 12:00:00 AM EDT Never Smoker completed Never S moker eCW1 ([facility]) Smoking 05/23/2020 12:00:00 AM EDT Never Smoker completed Never S moker eCW1 ([facility]) Smoking 05/23/2020 12:00:00 AM EDT Never Smoker completed Never S moker eCW1 ([facility]) Smoking 05/23/2020 12:00:00 AM EDT Never Smoker completed Never S moker eCW1 ([facility]) Smoking 04/01/2020 12:00:00 AM EST Never Smoker completed Never S moker eCW1 ([facility]) Vital Signs ID Date Data Source UNK Name Value Range Interpretation Code Description Data Source(s) Diastolic blood pressure 100 mm[Hg] 100 mm[Hg] eCW1 ([facility]) Body weight 237.8 [lb_av] 237.8 [lb_av] eCW1 ([facility]) Body weight 107.87 kg 107.87 kg eCW1 ([facility]) Body height 65.5 [in_i] 65.5 [in_i] eCW1 ([facility]) Body mass index (BMI) [Ratio] 38.97 kg/m2 38.97 kg/m2 eCW1 ([facility]) Heart rate 132 /min 132 /min eCW1 ([facility]) Respiratory rate 22 /min 22 /min eCW1 ([facility]) Body temperature 97.5 [degF] 97.5 [degF] eCW1 ( [facility]) Systolic blood pressure 150 mm[Hg] 150 mm[Hg] e CW1 ([facility]) Body weight 237.8 [lb_av] 237.8 [lb_av] eCW1 ([facility]) Body height 65.5 [in_i] 65.5 [in_i] eCW1 ([facility]) Body mass index (BMI) [Ratio] 38.97 kg/m2 38.97 kg/m2 eCW1 ([facility]) Heart rate 89 /min 89 /min eCW1 ([facility]) Respiratory rate 18 /min 18 /min eCW1 ([facility]) Body temperature 98.7 [degF] 98.7 [degF] eCW1 ( [facility]) Systolic blood pressure 130 mm[Hg] 130 mm[Hg] e CW1 ([facility]) Diastolic blood pressure 84 mm[Hg] 84 mm[Hg] eCW1 ([facility]) Body weight 242.2 [lb_av] 242.2 [lb_av] eCW1 ([facility]) Body weight 109.9 kg 109.9 kg eCW1 ([facility]) Body height 65.5 [in_i] 65.5 [in_i] eCW1 ([facility]) Body mass index (BMI) [Ratio] 39.69 kg/m2 39.69 kg/m2 eCW1 ([facility]) Heart rate 88 /min 88 /min eCW1 ([facility]) Respiratory rate 20 /min 20 /min eCW1 ([facility]) Body temperature 99.1 [degF] 99.1 [degF] eCW1 ( [facility]) Systolic blood pressure 138 mm[Hg] 138 mm[Hg] e CW1 ([facility]) Diastolic blood pressure 82 mm[Hg] 82 mm[Hg] eCW1 ([facility]) Body weight 240.6 [lb_av] 240.6 [lb_av] eCW1 ([facility]) Body weight 109.1 kg 109.1 kg eCW1 ([facility]) Body height 65.5 [in_i] 65.5 [in_i] eCW1 ([facility]) Body mass index (BMI) [Ratio] 39.42 kg/m2 39.42 kg/m2 eCW1 ([facility]) Heart rate 86 /min 86 /min eCW1 ([facility]) Respiratory rate 18 /min 18 /min eCW1 ([facility]) Body temperature 98.6 [degF] 98.6 [degF] eCW1 ( [facility]) Patient Treatment Plan of Care Planned Activity Planned Date Details Description Data Source (s) tizanidine 2 MG Oral Capsule [Zanaflex] 12/17/2020 12:00:00 AM EST eCW1 ([facility]) gabapentin 300 MG Oral Capsule 12/17/2020 12:00:00 AM EST eCW1 ([facility]) tizanidine 2 MG Oral Capsule [Zanaflex] 12/17/2020 12:00:00 AM EST eCW1 ([facility]) gabapentin 300 MG Oral Capsule 12/17/2020 12:00:00 AM EST eCW1 ([facility]) tizanidine 2 MG Oral Capsule [Zanaflex] 12/17/2020 12:00:00 AM EST eCW1 ([facility]) gabapentin 300 MG Oral Capsule 12/17/2020 12:00:00 AM EST eCW1 ([facility]) tizanidine 2 MG Oral Capsule [Zanaflex] 12/17/2020 12:00:00 AM EST eCW1 ([facility]) gabapentin 300 MG Oral Capsule 12/17/2020 12:00:00 AM EST eCW1 ([facility]) Nabumetone(Relafen) 500 mg 500 mg 08/23/2020 12:00:00 AM EDT eCW1 ([facility]) Nabumetone(Relafen) 500 mg 500 mg 08/23/2020 12:00:00 AM EDT eCW1 ([facility]) Nabumetone(Relafen) 500 mg 500 mg 08/23/2020 12:00:00 AM EDT eCW1 ([facility]) Diclofenac Sodium 0.01 MG/MG Topical Gel [Voltaren] 05/24/19 12:00:00 AM EDT eCW1 ([facility]) Voltaren 1 % 05/23/2020 12:00:00 AM EDT e CW1 ([facility]) Diclofenac Sodium 0.01 MG/MG Topical Gel [Voltaren] 05/24/19 12:00:00 AM EDT eCW1 ([facility]) Hydroxyzine Hydrochloride 50 MG Oral Tablet 01/15/2020 12:00:00 AM EST eCW1 ([facility])
[2020-12-30] MEDS ORDERED: ONDANSETRON 4MG/2ML VIAL IV ONE (06:50)
[2020-12-30 06:59] LABS: BASO % 0.4 % (0.0-1.0); EOS % 0.1 % (0.0-3.0); HEMOGLOBIN 12.4 g/dl (12.0-15.5); MEAN CORPUSCULAR HEMOGLOBIN 29.2 pg (27.0-33.0); MEAN CORPUSCULAR HGB CONC 33.5 g/dl (32.0-36.5); MEAN CORPUSCULAR VOLUME 87.3 fl (80.0-96.0); MONO # 0.9 10^3/uL (0.0-0.8); MONO % 10.8 % (2.0-8.0); NEUTROPHILS # 6.4 10^3/uL (1.5-8.5); NEUTROPHILS % 75.3 % (36.0-66.0); PLATELET COUNT, AUTOMATED 366 10^3/uL (150-450); RED BLOOD COUNT 4.24 10^6/uL (4.00-5.40); WHITE BLOOD COUNT 8.5 10^3/uL (4.0-10.0)
[2020-12-30 07:09] LABS: INR 1.04
[2020-12-30 07:10] LABS: PARTIAL THROMBOPLASTIN TIME 35.9 SECONDS (25.9-37.0)
[2020-12-30 07:13] LABS: D-DIMER QUANT 1601.63 ng/ml (<500)
[2020-12-30 07:25] LABS: CK-MB VALUE MASS < 1.0 NG/ML (<3.6); CPK CREATINE PHOSPHOKINASE 46 U/L (26-192); MB/CK RELATIVE INDEX 2.17 (< OR =4); TROPONIN I < 0.02 NG/ML (< 0.10)
--- NOTE | 2020-12-30 07:27 | REPVR ---
PROCEDURE INFORMATION: Exam: XR Chest Exam date and time: 12/30/2020 6:36 AM Age: 50 years old Clinical indication: Cough; Additional info: Dyspnea/cough TECHNIQUE: Imaging protocol: XR of the chest. Views: 1 view. COMPARISON: CT Chest without contrast 01/01/2017 2:35 PM FINDINGS: Lungs: There are bilateral patchy pulmonary infiltrates which may be secondary to an atypical pneumonia. Pleural spaces: No pleural effusion. No pneumothorax. Heart/Mediastinum: No cardiomegaly. Bones/joints: Unremarkable. IMPRESSION: 1. There are bilateral patchy pulmonary infiltrates which may be secondary to an atypical pneumonia. 2. A followup PA and lateral radiograph is recommended when the patient is clinically able. Electronically signed by: Neil Pickens On 12/30/2020 07:27:10 AM
[2020-12-30 07:32] LABS: ALBUMIN 3.3 GM/DL (3.2-5.2); ALT/SGPT 118 U/L (12-78); BILIRUBIN,DIRECT 0.1 MG/DL (0.0-0.2); BILIRUBIN,TOTAL 0.5 MG/DL (0.2-1.0); BLOOD UREA NITROGEN 16 MG/DL (7-18); CALCIUM LEVEL 10.9 MG/DL (8.5-10.1); CARBON DIOXIDE LEVEL 28 MEQ/L (21-32); CHLORIDE LEVEL 102 MEQ/L (98-107); FERRITIN 781 NG/ML (8-252); GLOMERULAR FILTRATION RATE > 60.0 (>51); GLUCOSE, FASTING 104 MG/DL (70-100); LDH LACTATE DEHYDROGENASE 381 U/L (84-246); MAGNESIUM LEVEL 2.4 MG/DL (1.8-2.4); NT-PRO BNP 200 PG/ML (<125); POTASSIUM SERUM 3.9 MEQ/L (3.5-5.1); SODIUM LEVEL 138 MEQ/L (136-145)
[2020-12-30 07:58] VITALS: O2SAT 99
[2020-12-30 09:15] VITALS: BP 136/87
--- NOTE | 2020-12-30 19:31 | ECGEPIP ---
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
--- NOTE | 2020-12-31 06:31 | ED PDOC ---
Post-Departure Follow-Up rosi wu faxed formal report of cxr for fu marlenig Sailaja Hart MD Dec 31, 2020 06:31
== END 2020-12-30 09:42 | disposition home or self-care (01) ==
LOC: M ED 04:52
DX: U07.1 COVID-19 (principal); I10 Essential (primary) hypertension; Z79.899 Other long term (current) drug therapy; Z98.890 Other specified postprocedural states
CPT/HCPCS: 71045; 80048; 80076; 82550; 82553; 82728; 83605; 83615; 83735; 83880; 84145; 84436; 84443; 84484; 85025; 85379; 85384; 85610; 85730; 86140; 87040; 87798; 93005; 93041; 94760; 96374; 99284; J2405

== ENCOUNTER 2020-12-30 10:00 | Outpatient (CLI) | payer BC ==
[~2020-12-30] VITALS: Ht 167.6 cm; Wt 97.0 kg
--- NOTE | 2020-12-30 09:23 | CR.PDOC ---
General Date of Consultation: Dec 30, 2020 Attending Physician: Feli Black MD Consultation REASON FOR CONSULTATION/CHIEF COMPLAINT: COVID 19 infection HISTORY OF PRESENT ILLNESS: patient is a 50 y/o F with PMH Of HTN, COVID 19 infection diagnosed on 12/23/20 who presented to [facility] ER from home for worsening SOB. Symptoms started 12/21/20: sinus pressure, post nasal drip, fevers at home (Tmax 101), cough. tested positive on 12/22/20. Patient tested positive 12/23/20. Patient states that fevers have since improved but other symptoms have remained the same. Intermittent fevers have been present. Patient is unvaccinated. Associated symptoms: nausea, small amount of diarrhea this AM, some lightheadedness and dizziness with going up stairs, weakness/lethargy. Denies chest pain, vomiting, abdominal pain. She took tylenol and ibuprofen for her symptoms at home with little improvement. Patient states that her oxygen levels at home were 91-96% at home and due to O2 drop, she came to get evaluated today. Today in ER, VS showed BP systolic 170's (patient had not taken PO meds this AM). Patient was afebrile. CXR: b/l patchy infiltrates. But when at rest O2 saturations stay at 96%, with activity 99%. Procalcitonin pending. Patient qualified for monoclonal Ab tx and consent was obtained. She will be d/lissette from ER with monoclonal order in system. ALLERGIES: Please see below. HOME MEDICATIONS: Please see below. PAST MEDICAL HISTORY: HTN OA hiatal hernia dysfunctional gallbladder psoriasis Plantar's fascitis in left foot Left knee meniscus issues tendinitis left shoulders B/l hip bursitis Sciatica PAST SURGICAL HISTORY: Tubal ligation Carpal tunnel release, left wrist partial hysterectomy FAMILY HISTORY: mother-HTN, HLD, CAD. Alive father-HTN, HLD. Alive SOCIAL HISTORY: Nonsmoker, illicit drug use. Social alcohol use. Ambulates independently. Lives locally with family. Full Code. PHYSICAL EXAMINATION: VITAL SIGNS: BP 170's, otherwise stable on RA GENERAL APPEARANCE: AAOx3, NAD, laying in bed HEENT: AT/NC, PERRLA RESPIRATORY: CTAB, no w/r/r CARDIOVASCULAR: S1S2 +, no M/r/g ABDOMEN: soft, nontender, nondistended, BS + 4 quad EXTREMITIES: no cyanosis, clubbing or edema, normal ROM of all joints NEUROLOGICAL: No focal deficits PSYCHIATRIC: Mood and affect appropriate LABORATORY DATA: Please see below. IMAGING: CXR: 1. There are bilateral patchy pulmonary infiltrates which may be secondary to an atypical pneumonia. 2. A followup PA and lateral radiograph is recommended when the patient is clinically able. ASSESSMENT/PLAN: COVID 19 infection -Saturating well on RA with rest and activity -CXR: b/l patchy infiltrates, procalcitonin pending , ordered by ER provider -If procalcitonin elevated, would recommend community acquired PNA coverage/abx x 7 days -Elevated inflammatory markers, AST/ALT- all 2/2 to infection -Needs follow up as o/p to ensure not worsening -Monoclonal ab ordered HTN -BP 170's systolic -Needs to take home meds Other chronic meds above- stable, f/u with PCP DISPOSITION: Going for monoclonal Ab tx today from ER. Allergies Coded Allergies: No Known Allergies (Verified , 02/20/08) Home Medications Scheduled Acetaminophen (Acetaminophen) 500 Mg Tablet, 1,000 MG PO QHS for fever for 15 Days, #60 (Reported) Ascorbic Acid (Vitamin C) 500 Mg Capsule, 500 MG PO DAILY for 28 Days, #28 (Reported) Cider Vinegar (Apple Cider Vinegar) 300 Mg Tablet, 400 MG PO BIDP, (Reported) Hydroxyzine HCl (Hydroxyzine HCl) 50 Mg Tablet, 50 MG PO QPM for anxiety for 30 Days, #30 (Reported) Magnesium (Magnesium) 200 Mg Tablet, 400 MG PO DAILY for 30 Days, #30 (Reported) Metoprolol Succinate (Metoprolol Succinate) 25 Mg Tab, 25 MG PO DAILY, #30 Multivitamins (Thera M Plus Tablet) 1 Each Tablet, 1 TAB PO DAILY, (Reported) Nabumetone (Nabumetone) 500 Mg Tablet, 500 MG PO BID for 30 Days, #60 (Reported) [place]-3 Fatty Acids (Super Twin Epa-Dha) 1,250 Mg Capsule, 1,000 MG PO DAILY for 30 Days, #30 (Reported) Vitamin D3/Folic Acid (Noxifol-D3 2,500 Unit-1 mg Tab) 2,500 Unit Tablet, 125 MCG PO DAILY for 30 Days, #30 (Reported) Feli Black MD Dec 30, 2020 09:23
[2020-12-30 09:56] VITALS: BP 123/65
[~2020-12-30 10:00] MED LIST changes: +ACET-683 PO; +ALBUTEROL 90 MCG/ACT 8GM HFA INHALER INH PRN; +ALBUTEROL SULFATE 2.5 MG/0.5 ML INH NEB SOLN INH PRN; +APPL300T4 PO; +BAMLANIVIMAB 700 MG, ETESEVIMAB 1,400 MG in NS 250 ML IV ONE; +CASIRIVIMAB (REGN10933) 600 MG, IMDEVIMAB (REGN10987) 600 MG in NS 250 ML IV ONE; +EPINEPHrine INJ 1 MG/ML 1ML AMP IM PRN; +HYDR50TA70 PO; +MAGN200T PO; +NABU-71 PO; +NOXI1TAB PO; +NS 1,000 ML IV SCH; +SUPECAP7 PO; +VITA500C24 PO; +VITMTA PO; +diphenhydrAMINE 50MG/ML VIAL (J1200) IV PRN; +methylPREDNISolone 125MG 2ML VIAL IV PRN
[2020-12-30 10:26] VITALS: BP 136/64
[2020-12-30 10:56] VITALS: BP 130/82
[2020-12-30 11:56] VITALS: BP 128/82
== END 2020-12-30 11:56 ==
LOC: M OPCLI4 10:00
PROVIDERS: ATTEND Internal Medicine
DX: U07.1 COVID-19 (principal)

== ENCOUNTER → 2021-07-29 | Outpatient (CLI) | payer BC ==
[~2021-07-29] MED LIST changes: -ALBUTEROL 90 MCG/ACT 8GM HFA INHALER INH PRN; -ALBUTEROL SULFATE 2.5 MG/0.5 ML INH NEB SOLN INH PRN; -BAMLANIVIMAB 700 MG, ETESEVIMAB 1,400 MG in NS 250 ML IV ONE; -CASIRIVIMAB (REGN10933) 600 MG, IMDEVIMAB (REGN10987) 600 MG in NS 250 ML IV ONE; -EPINEPHrine INJ 1 MG/ML 1ML AMP IM PRN; -NS 1,000 ML IV SCH; -diphenhydrAMINE 50MG/ML VIAL (J1200) IV PRN; -methylPREDNISolone 125MG 2ML VIAL IV PRN
[2021-07-29 15:23] LABS: BASO # 0.1 10^3/uL (0.0-0.2); BASO % 0.7 % (0.0-1.0); EOS # 0.1 10^3/uL (0.0-0.5); EOS % 0.8 % (0.0-3.0); HEMATOCRIT 39.2 % (36.0-47.0); LYMPH # 2.4 10^3/uL (1.5-5.0); LYMPH % 28.4 % (24.0-44.0); MEAN CORPUSCULAR HEMOGLOBIN 30.2 pg (27.0-33.0); MEAN CORPUSCULAR HGB CONC 33.2 g/dl (32.0-36.5); MEAN CORPUSCULAR VOLUME 91.2 fl (80.0-96.0); MONO # 0.6 10^3/uL (0.0-0.8); NEUTROPHILS # 5.3 10^3/uL (1.5-8.5); NEUTROPHILS % 62.6 % (36.0-66.0); PLATELET COUNT, AUTOMATED 334 10^3/uL (150-450); WHITE BLOOD COUNT 8.5 10^3/uL (4.0-10.0)
[2021-07-29 15:55] LABS: ERYTHROCYTE SEDIMENTATION RATE 13 mm/hr (0-30)
[2021-07-29 16:01] LABS: ALBUMIN 3.9 GM/DL (3.2-5.2); ALT/SGPT 16 U/L (12-78); BILIRUBIN,TOTAL 0.5 MG/DL (0.2-1.0); BLOOD UREA NITROGEN 16 MG/DL (7-18); CALCIUM LEVEL 10.9 MG/DL (8.5-10.1); CARBON DIOXIDE LEVEL 25 MEQ/L (21-32); CHLORIDE LEVEL 107 MEQ/L (98-107); CREATININE FOR GFR 0.88 MG/DL (0.55-1.30); GLOMERULAR FILTRATION RATE > 60.0 (>51); GLUCOSE, FASTING 106 MG/DL (70-100); POTASSIUM SERUM 4.1 MEQ/L (3.5-5.1); RHEUMATOID FACTOR QUANT < 10.0 IU/ML (<15.0); SODIUM LEVEL 140 MEQ/L (136-145); TOTAL PROTEIN 7.3 GM/DL (6.4-8.2)
== END ==
LOC: M LAB 13:50
PROVIDERS: ATTEND Family Medicine
DX: M25.50 Pain in unspecified joint (principal)

== ENCOUNTER → 2021-07-31 | Outpatient (CLI) | payer BC ==
[2021-07-31 18:45] LABS: BLOOD UREA NITROGEN 17 MG/DL (7-18); CALCIUM LEVEL 10.7 MG/DL (8.5-10.1); CARBON DIOXIDE LEVEL 25 MEQ/L (21-32); CHLORIDE LEVEL 107 MEQ/L (98-107); CREATININE FOR GFR 0.84 MG/DL (0.55-1.30); GLOMERULAR FILTRATION RATE > 60.0 (>51); GLUCOSE, FASTING 94 MG/DL (70-100); SODIUM LEVEL 140 MEQ/L (136-145)
[2021-08-01 10:27] LABS: PTH INTACT 61.8 PG/ML (18.5-88.0)
== END ==
LOC: M LAB 17:38
PROVIDERS: ATTEND Family Medicine
DX: E83.52 Hypercalcemia (principal)

== ENCOUNTER → 2021-08-04 | Outpatient (CLI) | payer BC | LOC: M LAB 16:09 | PROVIDERS: ATTEND Family Medicine | DX: E83.52 Hypercalcemia (principal) ==

== ENCOUNTER → 2021-08-21 | Outpatient (CLI) | payer BC ==
[2021-08-21 13:14] LABS: TOTAL PROTEIN 7.6 GM/DL (6.4-8.2)
== END ==
LOC: M LAB 11:45
PROVIDERS: ATTEND Family Medicine
DX: E83.52 Hypercalcemia (principal)

== ENCOUNTER 2022-06-14 12:03 | Emergency (ER) | payer BC, SELFPAY ==
[~2022-06-14] VITALS: Ht 167.6 cm; Wt 99.1 kg
[2022-06-14 13:07] LABS: RSV AMPLIFICATION NEGATIVE (NEGATIVE)
[2022-06-14] MEDS ORDERED: AZIT-12 PO (14:35)
[2022-06-14 14:44] VITALS: BP 139/77
== END 2022-06-14 14:50 | disposition home or self-care (01) ==
LOC: M ED 12:03
DX: R91.8 Other nonspecific abnormal finding of lung field (principal); R05.9 Cough, unspecified; I10 Essential (primary) hypertension; F41.9 Anxiety disorder, unspecified; Z79.810 Long term (current) use of selective estrogen receptor modulators (SERMs); Z79.899 Other long term (current) drug therapy

== ENCOUNTER → 2024-09-28 | Outpatient (REF) | payer OTHER ==
[~2024-09-28] MED LIST changes: +AZIT-12 PO
[2024-09-28 17:52] LABS: AMORPHOUS SEDIMENT SMALL (NEGATIVE); APPEARANCE, URINE HAZY (CLEAR); BACTERIA, URINE AUTO NEGATIVE (NEGATIVE); BILIRUBIN, URINE AUTO NEGATIVE (NEGATIVE); BLOOD, URINE BLOOD NEGATIVE (NEGATIVE); GLUCOSE, URINE (UA) AUTO NEGATIVE (NEGATIVE); KETONE, URINE AUTO NEGATIVE (NEGATIVE); LEUKOCYTE ESTERASE, URINE AUTO NEGATIVE (NEGATIVE); MUCUS, URINE SMALL (NEGATIVE); NITRITE, URINE AUTO NEGATIVE (NEGATIVE); PROTEIN, URINE AUTO NEGATIVE (NEGATIVE); RBC, URINE AUTO 1 /HPF (0-3); SPECIFIC GRAVITY URINE AUTO 1.023 (1.002-1.035); SQUAMOUS EPITHELIAL CELL UR AU 9 /HPF (0-6); UROBILINOGEN, URINE AUTO 0.2 mg/dL (0.0-2.0); WBC, URINE AUTO 1 /HPF (0-3)
[2024-09-28 18:11] LABS: BASO # 0.1 10^3/uL (0.0-0.2); BASO % 0.7 % (0.0-1.0); EOS # 0.1 10^3/uL (0.0-0.5); EOS % 1.3 % (0.0-3.0); LYMPH # 1.9 10^3/uL (1.5-5.0); LYMPH % 26.7 % (24.0-44.0); MONO # 0.5 10^3/uL (0.0-0.8); MONO % 7.5 % (2.0-8.0); NEUTROPHILS # 4.5 10^3/uL (1.5-8.5); NEUTROPHILS % 63.4 % (36.0-66.0); PLATELET COUNT, AUTOMATED 321 10^3/uL (150-450)
[2024-09-28 18:13] LABS: TOTAL 25(OH) VITAMIN D 42.1 NG/ML (20.0-100.0)
[2024-09-28 18:38] LABS: ALT/SGPT 17.0 U/L (7.0-40); AST/SGOT 16.0 U/L (<34); CALCIUM LEVEL 10.8 MG/DL (8.5-10.1); CARBON DIOXIDE LEVEL 27.0 MMOL/L (20-31); CHLORIDE LEVEL 104.0 MMOL/L (98-107); CHOLESTEROL LEVEL 261.0 MG/DL (<200); CHOLESTEROL RISK RATIO 5.46 (<5); CREATININE FOR GFR 0.8 MG/DL (0.55-1.30); GLOMERULAR FILTRATION RATE 88.1 (>51); LDL CHOLESTEROL 158.8 MG/DL (<100); NON-HDL-C 213.2 MG/DL; POTASSIUM SERUM 4.0 MMOL/L (3.5-5.1); SODIUM LEVEL 142.0 MMOL/L (136-145); TRIGLYCERIDES LEVEL 272.0 MG/DL (<150)
[2024-09-28 18:50] LABS: ESTIMATED AVERAGE GLUCOSE 105.0 MG/DL (60-110)
== END ==
LOC: M SFHCLERA 09:33
PROVIDERS: ATTEND Internal Medicine
DX: Z00.00 Encounter for general adult medical examination without abnormal findings (principal); E66.09 Other obesity due to excess calories